=== PATIENT | female | born 1945 | race Asian ===

== ENCOUNTER 2018-03-11 10:07 | Emergency (ER) | payer MEDICARE, OTHER ==
[~2018-03-11] VITALS: Ht 154.9 cm; Wt 55.3 kg
[~2018-03-11 10:07] MED LIST: ASPIR 8181 MG PO; CRESTOR20 MG PO; CYCLOSPORINE100 MG PO; CYCLOSPORINE25 MG PO; FLUCONAZOLE200 MG PO; LEVOFLOXACIN750 MG PO; ONDANSETRON ODT8 MG PO; PROMACTA75 MG PO; TRAZODONE HCL50 MG PO; TYLENOL EXTRA500 MG PO; ULTRAM50 MG PO; VALACYCLOVIR500 MG PO
[2018-03-28] MEDS ORDERED: TRAZODONE HCL50 MG PO (13:42)
[2018-03-30] MEDS ORDERED: CLOTRIMAZOLE10 MG MM (10:40)
[2018-03-30] MEDS ORDERED: ONDANSETRON ODT8 MG PO (10:42)
[2018-04-04] MEDS ORDERED: CYCLOSPORINE25 MG PO (10:23)
== END 2018-03-11 13:22 | disposition home or self-care (01) ==
LOC: ED 10:07
DX: S20.212A Contusion of left front wall of thorax, initial encounter (principal); S40.022A Contusion of left upper arm, initial encounter; D61.9 Aplastic anemia, unspecified; W19.XXXA Unspecified fall, initial encounter; E78.5 Hyperlipidemia, unspecified; Z88.8 Allergy status to other drugs, medicaments and biological substances; Z79.899 Other long term (current) drug therapy; Z79.2 Long term (current) use of antibiotics
CPT/HCPCS: 80053; 85025; 99283

== ENCOUNTER 2018-04-12 11:31 | Emergency (ER) | payer MEDICARE, OTHER ==
[~2018-04-12] VITALS: Ht 154.9 cm; Wt 53.5 kg
[~2018-04-12 11:31] MED LIST changes: +CLOTRIMAZOLE10 MG MM
== END 2018-04-12 19:43 | disposition home or self-care (01) ==
LOC: ED 11:31
PROC: 30230N1 Transfusion of Nonautologous Red Blood Cells into Peripheral Vein, Open Approach (ICD-10-PCS; principal; 2018-04-12)
DX: D61.9 Aplastic anemia, unspecified (principal); E78.5 Hyperlipidemia, unspecified; Z88.8 Allergy status to other drugs, medicaments and biological substances; Z79.899 Other long term (current) drug therapy
CPT/HCPCS: 36430; 80053; 82728; 83540; 83615; 84238; 84466; 85025; 85027; 85610; 85730; 86850; 86900; 86901; 86920; 96374; 99283

== ENCOUNTER 2018-04-25 10:22 | Emergency (ER) | payer MEDICARE, OTHER ==
[~2018-04-25] VITALS: Ht 154.9 cm; Wt 53.1 kg
--- NOTE | 2018-04-26 14:54 | EKG ---
[facility] [address] [facility] [place] [address] Signed Normal sinus rhythm Normal ECG No previous ECGs available Confirmed by KATRIN VERA MD ([id number]) on 04/26/2018 2:54:15 PM Electronically Signed By: KATRIN VERA MD 04/26/18 1454 PATIENT NAME: KARTHIKFLORMARLYN MAILE Electrocardiogram DATE OF : 47 PHYSICIAN: KATRIN VERA MD REPORT #: [id number] REPORT IS CONFIDENTIAL AND NOT TO BE RELEASED WITHOUT AUTHORIZATION
== END 2018-04-25 13:36 | disposition home or self-care (01) ==
LOC: ED 10:22
DX: R55 Syncope and collapse (principal); D61.9 Aplastic anemia, unspecified; E78.5 Hyperlipidemia, unspecified; Z88.8 Allergy status to other drugs, medicaments and biological substances; Z79.899 Other long term (current) drug therapy; Z79.2 Long term (current) use of antibiotics
CPT/HCPCS: 36415; 80053; 85025; 86850; 86900; 86901; 86920; 93005; 93010; 96360; 99284; J7030

== ENCOUNTER 2018-05-29 18:05 | Emergency (ER) | payer MEDICARE, OTHER ==
[~2018-05-29] VITALS: Ht 154.9 cm; Wt 49.4 kg
--- OUTSIDE RECORDS SUMMARY | ~2018-05-29 | XMS | Encounter Summary ---
Demographics + + + | Address | [address] | | | [place] [address] | + + + | Home Phone | | + + + | Preferred Language | Unknown | + + + | Marital Status | | + + + | Buddhist Affiliation | Unknown | + + + | Race | White | + + + | Ethnic Group | Not or | + + + Author + + + | Author | [facility] | + + + | Organization | [facility] | + + + | Address | [...] Team Providers + +------+ + | Care Juvenile Counselor Name | Role | Phone | + +------+ + | Reginaldo Briggs MD | PCP | | + +------+ + Reason for Visit + + + | Reason | Comments | + + + | Follow-up visit | | + + + Encounter Details +--------+---------+ + + + | Date | Type | Department | Care Team | Description | +--------+---------+ + + + | 05/17/ | Office | Center for | Cari Fuentes MD | Aplastic anemia, | | 2018 | Visit | Hematologic | [address] | idiopathic, acquired | | | | Malignancies at | [address] [place], | ([facility]) (Primary Dx) | | | | [place] | [place] [address] | | | | | [address] | [phone] | | | | | [address] | | | | | | Mailcode: [id number] | | | | | | [place] | | | | | | [place], [place] | | | | | | [address] | | | | | | [phone] | | | +--------+---------+ + + + Social History + +-------+ [...] + + + as of this encounter Last Filed Vital Signs + + + + | Vital Sign | Reading | Time Taken | + + + + | Blood Pressure | 126/70 | 05/17/2018 1:51 PM PDT | + + + + | Pulse | 82 | 05/17/2018 1:51 PM PDT | + + + + | Temperature | 36.7 C (98.1 F) | 05/17/2018 1:51 PM PDT | + + + + | Respiratory Rate | 20 | 05/17/2018 1:51 PM PDT | + + + + | Oxygen Saturation | 97% | 05/17/2018 1:51 PM PDT | + + + + | Inhaled Oxygen | - | - | | Concentration | | | + + + + | Weight | 50.6 kg (111 lb 8.8 | 05/17/2018 1:51 PM PDT | | | oz) | | + + + + | Height | - | - | + + + + | Body Mass Index | 20.66 | 05/17/2018 1:51 PM PDT | + + + + in this encounter Instructions Patient Instructions - Anne-Marie Blackburn RN - 05/17/2018 2:45 PM PDTSummary of our visit on 05/17/2018 Aguilar points: --- Thank you for coming in today. --- Given that you have not had a very good disease response with the cyclosporine, Dr. Danielle mak is opting to change course of treatment. She discussed another oral medication for veronique tment of aplastic anemia, Danazol and subcutaneous NPlate. This is actually well tolerated compared to cyclosporin, so we are hoping that you will start to feel better once off cyclos porin. Do not take your cyclosporin dose tonight. --- Continue weekly labs and supportive care when needed, as you have been doing. --- Dr. Fuentes will discuss the plan with Dr. Gamboa starting the NPlate locally and to do any additional refills for Danazol since he is your primary oncologist and monitoring yo u more closely. --- Dr. Fuentes did not feel that you needed an MRI at this time and will relay this to Dr. Gamboa as well. --- With you platelet count=8,000 today, we will give you 1 unit of platelets in our clinic . To help with your dizziness, we will also give you 1L normal saline. --- Feel free to contact our office if you should have any questions/concerns about your ca re. New medications: Danazole 100mg three times daily... Prescription sent to local [facility] with [address] Gamboa should then continue with additional refills. Refills today: none Tests, procedures, or consults we have ordered today: Labs: none Radiology: none Special instructions or precautions: Practice good hand washing and frequent sanitation, avoid sick people, and avoid rubbing yo ur nose and mouth after contact with public surfaces Follow2-up plan: Labs: continue once weekly locally with Dr. Gamboa Visit with Dr. Fuentes or [employer]/PA: 2 months (July) PLEASE REMEMBER I HAVE A TEAM OF MECHANICAL OXIDIZER TO HELP ME TAKE CARE OF YOU. Therefore, mess ages left for me on my DIRECT PHONE line, on MY CHART, and via EMAIL may not be handled in a timely manner for your situation (I may be out of town on vacation or at a conference or do not have access to the medical record system). As a rule, please avoid using electronic uyen ns for communicating urgent or complex issues. IF YOU DON'T GET THE RESPONSE YOU NEED, PLEAS E CALL OUR CLINIC PHONE LINES LISTED BELOW. IF YOU DEVELOP ANY SYMPTOMS OR HAVE MEDICAL QUESTIONS: Please call the Triage Nurse at or [phone] (Monday - Monday 8:30-4:30). During after hours, holiday s, and weekends, please call [phone] and ask to have the BMT [employer] combination teacher paged. FOR PRESCRIPTIONS: Please allow >72 hours for prescription refills. Please make sure no ref ills remain prior to calling. If refills remain, please call the pharmacy for a refill. in t his encounter Progress Notes Erik Justin MA - 05/17/2018 2:45 PM PDTName of Test: CBC Result: PLT 8 Time Results Received: 1413 Name of Provider Notified: Cari Fuentes MD Date/Time of Provider Notification: 05/17/2018 2:20 PM Action(s) Taken: Readback, nurse notified. GEE Betts Uma M, MD - 05/17/2018 2:45 PM PDTFormatting of this note may be different from th e original. Chief Complaint: Aplastic Anemia Primary Care Provider: Reginaldo Briggs MD Local Oncologist: Dr.R Clay Referring provider: Leland Plunkett MD Treatment Hx: 1) Supportive transfusions 02/15/2018-current 2) CSA: 25mg 04/29/2018-05/17/2018 100mg 03/23/2018-04/29/2018-D/C starting 05/17/2018 3) Danazol: 100mg 3x/day: 05/17/2018 4) Promacta 75 mg PO BID: 02/15/2018-Current -Plan to d/c and change to Nplate pending insurance approval. HPI: Inocencia Bhatia is a 72 year old female with a 2 month hx of increased spontaneous bru ising but no bleeding. Also has increased fatigue over the last few weeks though still very active around her home and property. Patient reports a distant history of anemia while preg nant, no other hematologic issues of note, no family history of same. Denies unusual exposur es, drinks rarely. She reportedly had a normal CBC last fall 2016. She presented to her PCP with these complaints, CBC done demonstrating white count 3000 wit h reportedly normal differential, hemoglobin 9.3, platelets 6000.She then F/U Dr. Plunkett who performed 2 bone marrow biopsies several weeks apart to reach a diagnosis as she had a broa d differential including MDS/Leukemia/Aplastic anemia sec unknown exposure, initial biopsy o n 01/17/18 was inadequate for a complete assessment. Meanwhile she continued to have supportiv e transfusions (mainly platelets) and felt relatively well except for increasing anxiety abo ut her diagnosis. Her most recent biopsy was consistent with aplastic anemia (see labs/patho logy for more detail). Also had a W/U that included PNH clone testing , CMV titers, parvovir us, hepatitis panel, HIV-all labs were negative. Interim: Ms. Bhatia has been loosing weight, approximately 20 lbs since January, and reports that this weight loss has been accelerating. She reports a lack of appetite, and when eating feels full prematurely. This patient called Dr. Clay 04/12/2018 to report a loss of c onsciousness that lasted for ~5 minutes. Went to ED and received hydration. [facility] for this episode. Today: Ms. Bhatia presents to clinic with family. Is feeling weak and dehydrated. She has v julia little appetite, and when she forces herself to eat she will frequently vomit afterwards . She is concerned about gagging and describes a food aversion for fear of choking. She also is scared of falls and has become homebound due to fear of falls. Denies diarrhea/constipat ion. Does complain of some nausea. ROS-Stated above. Rest of ROS is negative. Physical Exam ECOG 1:The physical exam is generally normal. Patient appears well, alert and oriented x 3, pleasant, cooperative. Vitals are as noted by nurse. Neck supple and free of adenopathy, or masses. No thyromegaly. TYRA. Ears, throat are normal. Chest is clear to aus cultation. Heart sounds are normal, no murmurs, clicks, gallops or rubs. Abdomen is soft, no tenderness, masses or organomegaly. Extremities are normal. Peripheral pulses are normal. S creening neurological exam is normal without focal findings. Skin is darker,+ jaundice in sc mike. Labs Pathology 01/26/2018 [facility] Final Pathologic Diagnosis Peripheral blood, smear ([employer], MB-18-23, 01/26/2018): - Leukopenia with absolute neutropenia and absolute monocytopenia. - Normocytic normochromic anemia. - Thrombocytopenia. Bone marrow, aspirate and biopsy ([employer], MB-18-, 01/26/2018): - Hypocellular-appearing marrow for age with decreased trilineage hematopo iesis, relative erythroid hyperplasia, and megakaryocytic aplasia. - Few lymphoid aggregates, favor reactive. Comment: The bone marrow biopsy is inadequate for evaluation, precluding definitive assessm ent of cellularity. The clot section particles appear hypocellular for age, but due to thei r small size and fragmented nature, accurately determining cellularity is impossible. Within these limits, cellularity is estimated at 10%. The differential diagnosis for the changes includes aplastic anemia/PNH, myelodysplastic sy ndrome, and other bone marrow failure disorders. There are no overt dysplastic features or i ncrease in blasts in this specimen to suggest a myelodysplastic syndrome. Further, correspon ding next generation sequencing studies performed on peripheral blood fail to identify patho genic mutations characteristic of MDS. Correlation with all available clinical and laborato ry findings is suggested. Case seen by: Evi Pruitt M.D./Hematopathology Fellow Niels Edwards M.D./Hematopathologist 02/15/2018 [facility] Clinical History: Aplastic anemia. The following 1 variant has been identified. 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 The exact clinical significance of the v ariant is unknown, and should be interpreted with caution. The RAD21 protein is part of a pr otein group called the cohesin complex that holds the sister chromatids together during yessenia sis. It plays important roles in stabilizing cells' genetic information, repairing damaged DNA, and regulating the activity of certain genes that are essential for normal development. Mutations in a subset of the genes encoding subunits of the cohesin complex (RAD21, STAG2, SMC1A, SMC3) are relatively common in AML and MDS, often co-occurring with known moving van driver muta tions including NPM1 and FLT3-internal tandem duplication (ITD) [Blood. 2014, 123(6):914-92 0]. Despite their functions, mutations in subunits of cohesin complex do not cause aneuploid y. Case reviewed by: Johanny Garcia MD, PhD/Molecular Genetic Pathology Fellow David Land MD, PhD /Hematopathologist A/P: 1) Aplastic Anemia: diagnosed with aplastic anemia via [facility] on 01/26/2018. Thus far she has been treated with supportive transfusions, CSA (started 03/23/2018), and promacta (started 04/15) in conjunction with biweekly lab work in [place]. Ms. Bhatia's transfusion requirements are the same/somewhat worse and she has several sympt oms indicating intolerance to CSA.We discussed stopping the CSA and starting danazol. This will also help with appetite support. This androgen like drug works to stabilize telomeres a nd has shown efficiay in aplastic anemia pts. to improve anemia.Promacta appears not to be e ffective. I recommend stopping the promacta once we can start N-plate (pending insurance francheska roval). N-plate should be titrated up per label/platelet count to achieve maximum efficacy. Addendum: Pt has an Epo level that is low at 60-WOULD BENEFIT from adding YVONNE agents like P rocrit or Aranesp at lowest dose and titrating per Hgb response. Give transfusion and NS today. Consider repeating a BMBx after 2 months if no improvement i n counts . D/c CSA today. RTC 2 months. 2) Food Aversion: Pt reports this starting prior to initiation of CSA. This issue has been going on for ~2 months, worsening in last few weeks. Daughter thinks it is psychosomatic, h x of nausea following food precludes her from trying to each as much as perhaps she is able. Daughters describe this process as a reluctance to eat. However, this may be secondary to C SA. 3) Nausea/vomiting: Continue current antiemetics. 4) Memory Loss: Has a history of memory loss beginning in April. Described as a mental fog a ccompanied by forgetfulness. This is another potential s/e of CSA. Monitor, if related to CS A ,symptoms will improve as drug clears from pt system in next 3-5 days. 5) Inactivity: Pt is seeing a physical therapist next week. She has low confidence in her a bility to walk without falling. She reports spending most of her time in bed, in her bathroo m, or in her chair. PT recommended, activity also recommended. 6) Jaundice: Likely sec to Promacta/CSA. 7) Diarrhea: Very little time between initial urgency and uncontrollable bowel movement. Al so reports feeling bloated, though this is not readily apparent to daughters. Thank you for allowing us to care for this patient. in this encounter Plan of Treatment +--------+ [...] 2017 | Visit | Malignancy | [address] | | | | | | [place], | | | | | | [place] [address] | | | | | | [phone] | | | | | | | | +--------+ + + + + as of this encounter Results CMP, POC (BMP+LFT) (05/17/2018 2:13 PM) + +---------+ + | Component | Value | Ref Range | + +---------+ + | SODIUM, POC | 139 | 134 - 143 mmol/L | + +---------+ + | POTASSIUM, POC | 4.2 | 3.4 - 5.0 mmol/L | + +---------+ + | TOTAL CO2, POC | 26 | 22 - 29 mmol/L | + +---------+ + | CHLORIDE, POC | 107 | 97 - 108 mmol/L | + +---------+ + | GLUCOSE, POC | 136 (H) | 70 - 99 mg/dL | + +---------+ + | CALCIUM TOTAL, POC | 9.5 | 8.6 - 10.2 mg/dL | + +---------+ + | BUN, POC | 29 (H) | 6 - 20 mg/dL | + +---------+ + | CREATININE, POC | 1.5 (H) | 0.6 - 1.1 mg/dL | + +---------+ + | ALK PHOS, CMP POC | 45 | 41 - 109 U/L | + +---------+ + | ALT, CMP POC | <20 | 0 - 60 U/L | + +---------+ + | AST, CMP POC | 24 | 0 - 41 U/L | + +---------+ + | BILIRUBIN TOTAL, CMP | 2.0 (H) | 0.3 - 1.2 mg/dL | | POC | | | + +---------+ + | ALBUMIN, CMP POC | 3.3 (L) | 3.5 - 4.7 g/dL | + +---------+ + | PROTEIN TOTAL, CMP | 6.7 | 6.1 - 7.9 g/dL | | POC | | | + +---------+ + + + + | Specimen | Performing Laboratory | + + + | Blood | [facility], POINT OF CARE TESTS [address] | | | [place] [address] | + + + CBC+DIFF,POC (05/17/2018 2:12 PM) + + + + | Component | Value | Ref Range | + + + + | WBC POC | 1.4 (L) | 3.5 - 10.8 10*3/uL | + + + + | RBC POC | 3.32 (L) | 4.00 - 5.20 10*6/uL | + + + + | HGB POC | 10.2 (L) | 12.0 - 16.0 g/dL | + + + + | HCT POC | 29.0 (L) | 36.0 - 46.0 % | + + + + | MCV POC | 87.3 | 80.0 - 100 fL | + + + + | MCH POC | 30.7 | 27.0 - 34.0 pg | + + + + | MCHC POC | 35.2 | 32.0 - 36.0 g/dL | + + + + | RDW SD, POC | 44.5 | 35.1 - 46.3 fL | + + + + | PLT POC | 8 (AA) | 150 - 400 10*3/uL | + + + + | MPV POC | 11.8 | 9.7 - 12.3 fL | + + + + | NEUTROPHIL% POC | 5.7 (L) | 50.0 - 70.0 % | + + + + | LYMPH% POC | 91.4 (H) | 18 - 42 % | + + + + | MONO %, POC | 2.9 (L) | 3.5 - 9.0 % | + + + + | EOS %, POC | 0.0 (L) | 1.0 - 3.0 % | + + + + | BASO %, POC | 0.0 | 0.0 - 2.0 % | + + + + | NEUTROPHIL# POC | 0.1 (L) | 1.8 - 7.7 10*3/uL | + + + + | LYMPH# POC | 1.3 | 1.0 - 4.8 10*3/uL | + + + + | MONO #, POC | 0.0 (L) | 0.1 - 0.9 10*3/uL | + + + + | EOS #, POC | 0.0 | 0.0 - 0.5 10*3/uL | + + + + | BASO #, POC | 0.0 | 0.0 - 0.1 10*3/uL | + + + + | CBC COMMENT, POC | Reveiwed. | | + + + + + + + | Specimen | Performing Laboratory | + + + | Blood | [facility], POINT OF CARE TESTS [address] | | | [place] [address] | + + + ERYTHROPOIETIN, SERUM (05/17/2018 1:49 PM) + + + + | Component | Value | Ref Range | + + + + | ERYTHROPOIETIN, | 60 (H)Comment: INTERPRETIVE INFORMATION: | 4 - 27 mU/mL | | SERUM | ErythropoietinNormal serum concentrations | | | | of erythropoietin for 95% of individuals | | | | with normal hematocrits range from 4-27 | | | | mU/mL. As the hematocrit is lowered by iron | | | | deficiency, aplastic, or hemolytic anemia, | | | | the concentration of erythropoietin | | | | increases as shown in the graph below. In | | | | the absence of anemia, elevated | | | | concentrations are seen in renal tumors, as | | | | a manifestation of renal transplant | | | | rejection, and in secondary polycythemia. | | | | Low values may be observed in | | | | hemochromatosis. Expected | | | | Erythropoietin Concentrations in | | | | Patients | | | | with Uncomplicated Anemia | | | | Erythropoietin | | | | (mU/mL) 100,000 | | | | - | | | | + | | | | + 10,000 | | | | - | | | | +....... | | | | + | | | | ....... 1,00 | | | | 0 - | | | | + ....... | | | | + | | | | ........ | | | | 100 - + | | | | ........ | | | | + ........ | | | | 10 - | | | | + ........ | | | | +---+---+ | | | | ---+---+---+---+ | | | | 10 | | | | 20 30 40 50 60 70 | | | | | | | | (Hematocrit %) | | | | (Contributions To | | | | Nephrology 1987:66:54-62) Decreased | | | | erythropoietin concentrations with an | | | | elevated hematocrit are observed in | | | | patients with polycythemia rubra vera, and | | | | with a decreased hematocrit in patients | | | | with HIV infection who are receiving | | | | AZT. Patients on AZT who have anemia and | | | | erythropoietin concentrations of less than | | | | or equal to 500 mU/mL may benefit from | | | | therapy with recombinant EPO ([facility] | | | | [phone],1989).Performed by [facility] | | | | [facility] [place], [facility] [address] | | | | [email or web address], Sebastian Johnson, | | | | , Lab. Director | | + + + + + + + | Specimen | Performing Laboratory | + + + | Blood | [facility] [address] [facility] | | | [place] [address] | + + + LDH TOTAL, PLASMA (05/17/2018 1:49 PM) + +---------+ + | Component | Value | Ref Range | + +---------+ + | LD TOTAL, PLASMA | 191 | <=250 U/L | + +---------+ + | LD CMNT | No Hemo | | + +---------+ + + + + | Specimen | Performing Laboratory | + + + | Blood | [facility], [address] | | | [place] [address] | + + + in this encounter Visit Diagnoses + + | Diagnosis | + + | Aplastic anemia, idiopathic, acquired (HCC) - Primary | + + | Other specified aplastic anemias | + +"
--- OUTSIDE RECORDS SUMMARY | ~2018-05-29 | XMS | Encounter Summary ---
Demographics + + + | Address | [address] | | | [place] [address] | + + + | Home Phone | | + + + | Preferred Language | Unknown | + + + | Marital Status | | + + + | Mormonism Affiliation | Unknown | + + + | Race | White | + + + | Ethnic Group | Not or | + + + Author + + + | Author | [facility] | + + + | Organization | [facility] | + + + | [...] Team Providers + +------+ + | Care Sustainment Logistics Analyst Name | Role | Phone | + +------+ + | Reginaldo Briggs MD | PCP | | + +------+ + Reason for Visit + + + | Reason | Comments | + + + | Appointment Question | | + + + Encounter Details +--------+ + + + + | Date | Type | Department | Care Team | Description | +--------+ + + + + | 05/07/ | Telephone | Center for | Radha Sainz | Appointment Question | | 2017 | | Hematologic | Naomie RN [address] | | | | | Malignancies at | [address] | | | | | [place] | [place], [place] | | | | | [address] | [address] | | | | | [address] | [phone] | | | | | Mailcode: [id number] | | | | | | [place] | | | | | | [place], [place] | | | | | | [address] | | | | | | [phone] | | | +--------+ + + + [...] | | | | | [place], | | | | | | [place] [address] | | | | | | [phone] | | | | | | | | +--------+ + + + + as of this encounter Visit Diagnoses Not on filein this encounter"
--- OUTSIDE RECORDS SUMMARY | ~2018-05-29 | XMS | Clinical Summary ---
Demographics + + + | Address | [address] | | | [place] [address] | + + + | Home Phone | | + + + | Preferred Language | Unknown | + + + | Marital Status | | + + + | Yazidi Affiliation | Unknown | + + + [...] Team Providers + +------+ + | Care Pre Certification Specialist Name | Role | Phone | + +------+ + | Reginaldo Briggs MD | PP | | + +------+ + Source Comments [facility] is fully live on both EpicCare Ambulatory and EpicCare InPatient.[facility] Allergies + + + + + [...] | Hospital | | | | | 2018 | Encounter | | | | +--------+ [...] Appointment Question | | 2017 | | | RENNY Akbar | | +--------+ + + + + | 05/03/ | Telephone | | Cari Fuentes MD | Lack of appetite | | 2018 | | | | ("feeling full"); | [...] | | | | | [place], | | | | | | [place] [address] | | | | | | [phone] | | | | | | | [...] | + +--------+ + + + | ONCOLOGY PATHWAYS | Routin | 02/26/2018 | | Results for this | | TREATMENT DECISION | e | 12:00 AM | | procedure are in the | | | | PDT | | results section. | + +--------+ + + + from Last 3 Months Results CONFIRMATORY ABO/RH (05/17/2018 3:49 PM) + + + + | Component | Value | Ref Range | + + + + | ABO Group | B | | + + + + | Rh Type | Positive | | + + + + + + + | Specimen | Performing Laboratory | + + + | Blood | [facility], TRANSFUSION MEDICINE [address] [place] [address] | | | [place] [address] | + + + ANTIBODY SCREEN (05/17/2018 3:49 PM) + + + + | Component | Value | Ref Range | + + + + | Antibody Screen | Negative | | + + + + + + + | Specimen | Performing Laboratory | + + + | Blood | [facility], TRANSFUSION MEDICINE [address] [place] [address] | | | [place] [address] | + + + TYPE AND SCREEN (05/17/2018 3:49 PM) + + + | Specimen | Performing Laboratory | + + + | Blood | | + + + + + | Narrative | + + | The following orders were created for panel order TYPE AND SCREEN. | | Procedure | | Abnormality Status | | --------- | | ------ ABO & RH | | TYPE[[id number]] F | | inal result ANTIBODY | | SCREEN[[id number]] Fin | | al result Please view results for these tests on the | | individual orders. | + + ABO & RH TYPE (05/17/2018 3:49 PM) + + + + | Component | Value | Ref Range | + + + + | ABO Group | B | | + + + + | Rh Type | Positive | | + + + + + + + | Specimen | Performing Laboratory | + + + | Blood | [facility], TRANSFUSION MEDICINE [address] [place] [address] | | | [place] [address] | + + + PRODUCT - PLATELET PHERESIS LEUKOREDUCED (05/17/2018 3:41 PM) + + + + | Component | Value | Ref Range | + + + + | PRODUCT DESCRIPTION | PLATELETS PHERESIS, LEUKOCYTE REDUCED, | | | | IRRADIATED | | + + + + | PRODUCT UNIT # | [id number] | | + + + + | UNIT ABO | O | | + + + + | UNIT RH | POS | | + + + + | STATUS OF UNIT | Presumed Transfused | | + + + + | EXPIRATION DATE | [id number] | | + + + + | BLOOD TYPE BARCODE | 5100 | | + + + + | BLOOD PRODUCT CODE | [id number] | | + + + + + + + | Specimen | Performing Laboratory | + + + | | [facility] [address] [place] [address] | | | [address] [place] [address] | + + + CMP, POC (BMP+LFT) (05/17/2018 [...] | + + + | Blood | [facility], POINT OF CARE TESTS [address] | | | [place] [address] | + + + CBC+DIFF,POC (05/17/2018 2:12 [...] | + + + | Blood | [facility], POINT OF CARE TESTS [address] | | | [place] [address] | + + + ERYTHROPOIETIN, SERUM (05/17/2018 [...] (Contributions To | | | | Nephrology 1988:66:54-62) Decreased | | | | erythropoietin concentrations [...] | | | therapy with recombinant EPO ([facility]J | | | | 322:8884-5517,1989).Performed by [facility] | | | | Laboratories,[address], [facility] [place] [address] | | | | [phone].[employer], Sebastian Johnson, | | | | , Lab. Director | | + + + + + + + | Specimen | Performing Laboratory | + + + | Blood | [facility] [address] [facility] | | | [place] [address] | + + + LDH TOTAL, PLASMA (05/17/2018 1:49 PM) + +---------+ + | Component | Value | Ref Range | + +---------+ + | LD TOTAL, PLASMA | 191 | <=250 U/L | + +---------+ + | LD CMNT | No Hemo | | + +---------+ + + + + | Specimen | Performing Laboratory | + + + | Blood | [facility], CORE [address] [place] [address] | | | [place] [address] | + + + ONCOLOGY PATHWAYS TREATMENT DECISION (02/26/2018) + + + + | Component | Value | Ref Range | + + + + | ONCOLOGY PATHWAYS | [Other Dx] - No Medical Intervention - Off | | | TREATMENT PLAN | Treatment. | | | REGIMEN | | | + + + + | ONCOLOGY PATHWAYS | [Other Dx] - No Medical Intervention - Off | | | TREATMENT DECISION | Treatment. | | | DETAILS | | | + + + + + + + | Specimen | Performing Laboratory | + + + | | VIA ONCOLOGY PATHWAYS | + + + from Last 3 [...] | MEDICA | xxxxxxxxxx | Medica | [phone]- | [address] | | | RE A & | | re | [phone] | [place] [address] | | | B | | | | | + +--------+ +--------+ + + | MODA MEDICARE | MODA | xxxxxxxxx | POS | [phone]- | [address] [address] | | SUPPLEMENT | MEDICA | | | [phone] | [place] [address] | | | RE | | | [...] | Self | [birth year] | Home: | [address] | | | al/Sudeep | | 1945 | [phone] | [place] [address] | | | srinivas | | | [phone] | | + +--------+ +--------+ + +
--- OUTSIDE RECORDS SUMMARY | ~2018-05-29 | XMS | Encounter Summary ---
Demographics + + + | Address | [address] | | | [place] [address] | + + + | Home Phone | | + + + | Preferred Language | Unknown | + + + | Marital Status | | + + + | Mosque Affiliation | Unknown | + + + | Race | White | + + + | Ethnic Group | Not or | + + + Author + + + | Author | [facility] | + + + | Organization | [facility] | + + + | Address [...] Team Providers + +------+ + | Care Deicer Inspector Electric Name | Role | Phone | + [...] [address] | | | | | | [facility] | | | | | | Mailcode: [id number] | | | | | | [place] | | | | | | [place], [place] | | | | | | [address] | | | | | | [phone] | | | +--------+ + + + [...] | | | | | Michelle Silva [place], | | | | | | [place] [address] | | | | | | [phone] | | | | | | | [...] + + + | Blood | [facility] POINT OF CARE TESTS [address] [facility] | | | [place] [address] | + + + CBC+DIFF,POC (05/17/2018 2:12 [...] + + + | Blood | [facility] POINT OF CARE TESTS [address] | | | [place] [address] | + + + ERYTHROPOIETIN, SERUM (05/17/2018 [...] | | | therapy with recombinant EPO ([facility] | | | | 322:8939-1790,1989).Performed by [facility] | | | | [facility],[address] [place] [address] | | | | [phone].[employer], Sebastian Johnson, | | | | MD Lab. Director | | + + + + + + + | Specimen | Performing Laboratory | + + + | Blood | [facility] [address] [facility] | | | [place] [address] | + + + LDH TOTAL, PLASMA (05/17/2018 1:49 PM) + +---------+ + | Component | Value | Ref Range | + +---------+ + | LD TOTAL, PLASMA | 191 | <=250 U/L | + +---------+ + | LD CMNT | No Hemo | | + +---------+ + + + + | Specimen | Performing Laboratory | + + + | Blood | [facility], CORE [address] | | | [place] [address] | + + + in this encounter Visit Diagnoses + + | Diagnosis | + + | Aplastic anemia, idiopathic, acquired (HCC) | + + | Other specified aplastic anemias | + +"
--- OUTSIDE RECORDS SUMMARY | ~2018-05-29 | XMS | Encounter Summary ---
Demographics + + + | Address | [address] | | | [place] [address] | + + + | Home Phone | | + + + | Preferred Language | Unknown | + + + | Marital Status | | + + + | Judaism Affiliation | Unknown | + + + | Race | Unknown | + + + | Ethnic Group | Unknown | + + + Author + + + | Author | [facility] | | | and [place] | + + + | Organization | [facility] | | | and [...] Team Providers + +------+ + | Care Freight Representative Name | Role | Phone | + [...] [place] | | | | | [address] [place] | [place] [address] | | | | | [place] [address] | [phone] | | | | | [phone] | | | +--------+ + + + [...]
--- OUTSIDE RECORDS SUMMARY | ~2018-05-29 | XMS | Encounter Summary ---
Demographics + + + | Address | [address] | | | [place] [address] | + + + | Home Phone | | + + + | Preferred Language | Unknown | + + + | Marital Status | | + + + | Mu-Ism Affiliation | Unknown | + + + | Race | White | + + + | Ethnic Group | Not or | + + + Author + + + | Author | [facility] | + + + | Organization | [facility] | + + + | Address [...] Team Providers + +------+ + | Care Foreign Policy Officer Name | Role | Phone | + [...] 2017 | | Hematologic | Naomie RN [address] | | | | | Malignancies at | [address] | | | | | [place] | [place], [place] | | | | | [address] | [address] | | | | | [address] | [phone] | | | | | Mailcode: UHN73A | | | | | | [place] Gu[place] | | | | | | [place], [place] | | | | | | [address] | | | | | | [phone] | | | +--------+ + + + [...] | | | | | Michelle Silva [place], | | | | | | [place] [address] | | | | | | [phone] | | | | | | | | +--------+ + + + + as of this encounter Visit Diagnoses Not on filein this encounter"
--- OUTSIDE RECORDS SUMMARY | ~2018-05-29 | XMS | Encounter Summary ---
Demographics + + + | Address | [address] | | | [place] [address] | + + + | Home Phone | | + + + | Preferred Language | Unknown | + + + | Marital Status | | + + + | Adventism Affiliation | Unknown | + + + | Race | White | + + + | Ethnic Group | Not or | + + + Author + + + | Author | [facility] | + + + | Organization | [facility] | + + + | Address [...] Team Providers + +------+ + | Care Rivet Machine Operator Name | Role | Phone [...] 05/03/ | Telephone | Center for | Cari Fuentes MD | Lack of appetite | | 2018 | | Hematologic | [address] | ("feeling full"); | | | | Malignancies at | [facility], | Weight loss (down 20 | | | | [place] | [place] [address] | lbs since january); | | | | [address] | [phone] | Lab findings, | | | | [facility] | | teaching, guidance, | | | | Mailcode: UHN73A | | and counseling | | | | [place] | | (asking for Iron | | | | [place], [place] | | overload testing and | | | | [address] | | MRI of the liver?); | | | | [phone] | | Referral | | | | [...] | | | | | Michelle Silva [place], | | | | | | [place] [address] | | | | | | [phone] | | | | | | | | +--------+ + + + + as of this encounter Visit Diagnoses Not on filein this encounter
--- OUTSIDE RECORDS SUMMARY | ~2018-05-29 | XMS | Clinical Summary ---
Demographics + + + | Address | [address] | | | [place] [address] | + + + | Home Phone | | + + + | Preferred Language | Unknown | + + + | Marital Status | | + + + | Mu-Ism Affiliation | Unknown | + + + | Race | Unknown | + + + | Ethnic Group | Unknown | + + + Author + + + | Author | [facility] | | | and [place] | + + + | Organization | [facility] | | | and [place] [...] Team Providers + +------+ + | Care Tool Planer Set Up Operator Name | Role | Phone | [...] + + + Current Medications + + + +---------+------+------+-------+ | Prescription | Sig. | Disp. | Refills | Star | End | Statu | | | | | | t | Date | s | | | | | | Date | | | + + + +---------+------+------+-------+ | | Take 1 tablet by | | | | | Activ | | loratadine-pseudoePH | mouth as needed for | | | | | e | | EDrine (CLARITIN-D | Allergies. | | | | | | | 24 HOUR) 10-240 mg | | | | | | | | per tablet | | | | | | | + + + +---------+------+------+-------+ | rosuvastatin | Take 20 mg by mouth | | | | | Activ | | (CRESTOR) 20 mg | nightly. | | | | | e | | tablet | | | | | | | + + + +---------+------+------+-------+ | fluticasone | 1 spray by Nasal | | | | | Activ | | (FLONASE) 50 | route as needed for | | | | | e | | mcg/nasal spray | Allergies. | | | | | | + + + +---------+------+------+-------+ | aluminum & | Take 30 mLs [...] | | | | | + + + +---------+------+------+-------+ | cyanocobalamin | Take 1,000 mcg by | | | | | Activ | | (VITAMIN B-12) 1000 | mouth Daily. | | | | | e | | MCG tablet | | | | | | | + + + +---------+------+------+-------+ | raNITIdine | Take 150 mg by mouth | | | | | Activ | | (ZANTAC) 150 mg | as needed for | | | | | e | | tablet | Heartburn. | | | | | | + + + +---------+------+------+-------+ | ALPRAZolam (XANAX) | Take 1 tablet by | | | 04/0 | | Activ | | 0.25 mg tablet | mouth as needed. | | | 3/20 | | e | | | | | | 18 | | | + + + +---------+------+------+-------+ | polyethylene | Take 17 g by mouth | | | | | Activ | | glycol (MIRALAX) | Daily. | | | | | e | | powder | | | | | | | + + + +---------+------+------+-------+ | TRAZODONE HCL PO | Take by mouth | | | | | Activ | | | nightly as needed. | | | | | e | + + + +---------+------+------+-------+ | Acetaminophen | Take by mouth. | | | | | Activ | | (TYLENOL PO) | | | | | | e | + + + +---------+------+------+-------+ | DIPHENHYDRAMINE | Take by mouth as | | | | | Activ | | HCL PO | needed. | | | | | e | + + + +---------+------+------+-------+ | ondansetron | Take 1 tablet by | 20 | 3 | 05/2 | | Activ | | (ZOFRAN) 8 MG tablet | mouth every 8 hours | tablet | | 20 | | e | | | as [...] | | | | | + + + +---------+------+------+-------+ | megestrol (MEGACE | Take 5 mLs by mouth | 150 mL | 5 | 04/16 | 05/16 | Activ | | ES) 625 MG/5ML | Daily for 30 days. | | | 0/20 | 07/05 | e | | suspension | | | | 18 | 18 | | + + + +---------+------+------+-------+ Active Problems + + + | Problem | Noted Date | + + + | Aplastic anemia (HCC) | 01/31/2018 | + + + | Pancytopenia (HCC) | 01/17/2018 | + + + Encounters +--------+ + + + + | Date | Type | Specialty | Care Team | Description | +--------+ + + + + | 05/04/ | Orders Only | | Jerardo Clay ([facility]) | | 2017 | | | Jer Miller MD | (Primary Dx) | +--------+ + + + + | 04/12/ | Telephone | | Jerardo Clay | | 2017 | | | Jer Miller MD | | +--------+ + + + + | 03/05/ | Telephone | | Jerardo Clay | | 2017 | | | Jer [...] + | Blood Pressure | 106/61 | 01/31/2018 1313 PDT | + + + + | Pulse | 61 | 01/31/20181312 PDT | + + + + | Temperature | 36.4 C (97.5 F) | 01/31/20181312 PDT | + + + + | Respiratory Rate | 16 | 01/31/20181312 PDT | + + + + | Oxygen Saturation | 96% | 01/31/20181110 PDT | + + + + | [...] 3 Months Results LABS - EXTERNAL SCAN (04/27/2018)Only the most recent of 2 results within the time period i s [...] + + | MEDICARE | MEDICA | [id number] | Medica | +1- | | | | RE | | re | [phone] | | | | PART A | | | | | | | AND B | | | | | + +--------+ +--------+ + + | MODA | MODA | [id number] | Indemn | [phone] | [address] [address] | | | HEALTH | | ity | [address] | [place] [address] | | | MDCR | | | [...] | Self | [birth year] | Home: | [address] | | | al/Fam | | 1945 | [phone] | [place] [address] | | | srinivas | | | [phone] | | + +--------+ +--------+ + +
--- OUTSIDE RECORDS SUMMARY | ~2018-05-29 | XMS | Encounter Summary ---
Demographics + + + | Address | [address] | | | [place] [address] | + + + | Home Phone | | + + + | Preferred Language | Unknown | + + + | Marital Status | | + + + | Orthodoxy Affiliation | Unknown | + + + | Race | Unknown | + + + | Ethnic Group | Unknown | + + + Author + + + | Author | [facility] | | | and [place] | + + + | Organization | [facility] | | | and [place] [...] Team Providers + +------+ + | Care Workers' Compensation Hearings Officer Name | Role | Phone | [...] [place] | | | | | [address] [place] | [place] [address] | | | | | [place] [address] | [phone] | | | | | [phone] | | | +--------+ + + + [...]
--- OUTSIDE RECORDS SUMMARY | ~2018-05-29 | XMS | Encounter Summary ---
Demographics + + + | Address | [address] | | | [place] [address] | + + + | Home Phone | | + + + | Preferred Language | Unknown | + + + | Marital Status | | + + + | Episcopal Affiliation | Unknown | + + + | Race | White | + + + | Ethnic Group | Not or | + + + Author + + + | Author | [facility] | + + + | Organization | [facility] | + + + | Address | Unknown | + + + | Phone | Unavailable | + + + Support + + +---------+ + | Name | Relationship | Address | Phone | + + +---------+ + | Prince Bhatia | YAIR | Unknown | | + + +---------+ + | Prinec Bhatia III | ECON | Unknown | | + + +---------+ + | Martha Bhatia | ECON | Unknown | | + + +---------+ + | June Rossi | ECON | Unknown | | + + +---------+ + | Lexi Curry | ECON | Unknown | | + + +---------+ + Care Team Providers + +------+ + | Care Sales Representative Raw Fibers Name | Role | Phone | + [...] | | | | Malignancies at | [facility], | Weight loss (down 20 | | | | [place] | [place] [address] | lbs since january); | | | | [address] | [phone] | Lab findings, | | | | [facility] | | teaching, guidance, | | | | Mailcode: [id number] | | and counseling | | | | [place] | | (asking for Iron | | | | [place], [place] | | overload testing and | | | | [address] | | MRI of the liver?); | | | | [phone] | | Referral | | | | [...] | | | | | Michelle Silva [place], | | | | | | [place] [address] | | | | | | [phone] | | | | | | | | +--------+ + + + + as of this encounter Visit Diagnoses Not on filein this encounter
--- OUTSIDE RECORDS SUMMARY | ~2018-05-29 | XMS | Clinical Summary ---
Demographics + + + | Address | [address] | | | [place] [address] | + + + | Home Phone | | + + + | Preferred Language | Unknown | + + + | Marital Status | | + + + | Zoroastrian Affiliation | Unknown | + + + | Race | Unknown | + + + | Ethnic Group | Unknown | + + + Author + + + | Author | [facility] | | | and [place] | + + + | Organization | [facility] | | | and [place] [...] Team Providers + +------+ + | Care Caseworker Protective Services Name | Role | Phone | + [...] | Orders Only | | Jerardo Clay ([facility]) | | 2017 | | [...] + + | MEDICARE | MEDICA | [id number] | Medica | +1- | | | | RE | | re | [phone] | | | | PART A | | | | | | | AND B | | | | | + +--------+ +--------+ + + | MODA | MODA | [id number] | Indemn | [phone] | [address] [address] | | | HEALTH | | ity | [address] | [place] [address] | | | MDCR | | | [...] | Self | [birth year] | Home: | [address] | | | al/Fam | | 1945 | [phone] | [place] [address] | | | srinivas | | | [phone] | | + +--------+ +--------+ + +
--- OUTSIDE RECORDS SUMMARY | ~2018-05-29 | XMS | Encounter Summary ---
Demographics + + + | Address | [address] | | | [place] [address] | + + + | Home Phone | | + + + | Preferred Language | Unknown | + + + | Marital Status | | + + + | Rastafarian Affiliation | Unknown | + + + [...] Team Providers + +------+ + | Care Psych Assistant Name | Role | Phone | + [...] [address] | | | | | | [facility] | | | | | | Mailcode: UHN73A | | | | | | Forrest Guerra | | | | | | [place], [place] | | | | | | [address] | | | | | | [phone] | | | +--------+ + + + [...] | | | | | Michelle Silva [place], | | | | | | [place] [address] | | | | | | [phone] | | | | | | | [...] POINT OF CARE TESTS [address] [facility] | | | [place] [address] | + + + CBC+DIFF,POC (05/17/2018 2:12 [address] | | | [place] [address] | + + + ERYTHROPOIETIN, SERUM (05/17/2018 [...] | | | therapy with recombinant EPO ([facility] | | | | 322:2313-4763,1989).Performed by [facility] | | | | [facility],[address] [place] [address] | | | | [phone].[employer], Sebastian Johnson, | | | | MD Lab. Director | | + + + + + + + | Specimen | Performing Laboratory | + + + | Blood | [facility] [address] [facility] | | | [place] [address] | + + + LDH TOTAL, PLASMA (05/17/2018 1:49 PM) + +---------+ + | Component | Value | Ref Range | + +---------+ + | LD TOTAL, PLASMA | 191 | <=250 U/L | + +---------+ + | LD CMNT | No Hemo | | + +---------+ + + + + | Specimen | Performing Laboratory | + + + | Blood | [facility], CORE [address] | | | [place] [address] | + + + in this encounter Visit Diagnoses + + | Diagnosis | + + | Aplastic anemia, idiopathic, acquired (HCC) | + + | Other specified aplastic anemias | + +"
--- OUTSIDE RECORDS SUMMARY | ~2018-05-29 | XMS | Encounter Summary ---
Demographics + + + | Address | [address] | | | [place] [address] | + + + | Home Phone | | + + + | Preferred Language | Unknown | + + + | Marital Status | | + + + | Judaism Affiliation | Unknown | + + + | Race | Unknown | + + + | Ethnic Group | Unknown | + + + Author + + + | Author | [facility] | | | and [place] | + + + | Organization | [facility] [...] Team Providers + +------+ + | Care Site Identification Specialist Name | Role | Phone | [...] [place] | | | | | [address] [place] | [place] [address] | | | | | [place] [address] | [phone] | | | | | [phone] | | | +--------+ + + + [...]
--- OUTSIDE RECORDS SUMMARY | ~2018-05-29 | XMS | Encounter Summary ---
Demographics + + + | Address | [address] | | | [place] [address] | + + + | Home Phone | | + + + | Preferred Language | Unknown | + + + | Marital Status | | + + + | Scientology Affiliation | Unknown | + + + | Race | Unknown | + + + | Ethnic Group | Unknown | + + + Author + + + | Author | [facility] | | | and [place] | + + + | Organization | [facility] | | | and [...] Team Providers + +------+ + | Care Lawn Mower Name | Role | Phone | + [...] + + | 03/05/ | Telephone | [facility] | [facility], | Other | | 2018 | | [facility] | Jer Miller MD [address] | | | | [facility] [address] [place] | | | | | [address] [place] | [place] [address] | | | | | [place] [address] | [phone] | | | | | [phone] | | | +--------+ + + + [...]
--- OUTSIDE RECORDS SUMMARY | ~2018-05-29 | XMS | Clinical Summary ---
Demographics + + + | Address | [address] | | | [place] [address] | + + + | Home Phone [...] Team Providers + +------+ + | Care Blocking Machine Operator Second Name | Role | Phone | + +------+ + | Reginaldo Briggs MD | PP | | + +------+ + Source Comments [facility] is fully live on both EpicCare Ambulatory and EpicCare InPatient.[facility] Allergies [...] | | | | | N[place], | | | | | | [place] [address] | | | | | | [phone] | | | | | | | [...] | + + + | Blood | [facility], TRANSFUSION MEDICINE [address] [place] [address] | | | [place] [address] | + + + ANTIBODY SCREEN (05/17/2018 3:49 PM) + + + + | Component | Value | Ref Range | + + + + | Antibody Screen | Negative | | + + + + + + + | Specimen | Performing Laboratory | + + + | Blood | [facility], TRANSFUSION MEDICINE [address] [place] [address] | | | [place] [address] | + + + TYPE AND SCREEN [...] | ------ ABO & RH | | TYPE[[id number]] F | | inal result ANTIBODY | | SCREEN[[id number]] Fin | | al result Please view [...] | + + + | Blood | [facility], TRANSFUSION MEDICINE [address] [place] [address] | | | [place] [address] | + + + PRODUCT - PLATELET PHERESIS LEUKOREDUCED (05/17/2018 3:41 PM) + + + + | Component | Value | Ref Range | + + + + | PRODUCT DESCRIPTION | PLATELETS PHERESIS, LEUKOCYTE REDUCED, | | | | IRRADIATED | | + + + + | PRODUCT UNIT # | [id number] | | + + + + | UNIT ABO | O | | + + + + | UNIT RH | POS | | + + + + | STATUS OF UNIT | Presumed Transfused | | + + + + | EXPIRATION DATE | [id number] | | + + + + | BLOOD TYPE BARCODE | 5100 | | + + + + | BLOOD PRODUCT CODE | [id number] | | + + + + + + + | Specimen | Performing Laboratory | + + + | | [facility], [facility] [address] [place] [address] | | | [address] [place] [address] | + + + CMP, POC (BMP+LFT) [...] [address] | | | [place] [address] | + + + CBC+DIFF,POC (05/17/2018 2:12 [...] | + + + | Blood | [facility], POINT OF CARE TESTS [address] | | | [place] [address] | + + + ERYTHROPOIETIN, SERUM (05/17/2018 [...] recombinant EPO (NEJ | | | | [id number],1989).Performed by [facility] | | | | Laboratories,[address], [facility] [place] [address] | | | | [phone].Weave, Sebastian Johnson, | | | | , Lab. Director | | + + + + + + + | Specimen | Performing Laboratory | + + + | Blood | [facility] [address] [facility] | | | [place] [address] | + + + LDH TOTAL, PLASMA (05/17/2018 1:49 PM) + +---------+ + | Component | Value | Ref Range | + +---------+ + | LD TOTAL, PLASMA | 191 | <=250 U/L | + +---------+ + | LD CMNT | No Hemo | | + +---------+ + + + + | Specimen | Performing Laboratory | + + + | Blood | [facility], CORE [address] | | | [place] [address] | + + + ONCOLOGY PATHWAYS TREATMENT [...] | | re | [address] | [place] [address] | | | B | | | | | + +--------+ +--------+ + + | MODA MEDICARE | MODA | xxxxxxxxx | POS | [phone] | [address] [address] | | SUPPLEMENT | MEDICA | | | [phone] | [place] [address] | | | RE | | | [...] | Self | [birth year] | Home: | [address] | | | al/Sudeep | | [phone] | [phone] | [place] [address] | | | srinivas | | | [phone] | | + +--------+ +--------+ + +
--- OUTSIDE RECORDS SUMMARY | ~2018-05-29 | XMS | Encounter Summary ---
Demographics + + + | Address | [address] | | | [place] [address] | + + + | Home Phone | | + + + | Preferred Language | Unknown | + + + | Marital Status | | + + + | Buddhist Affiliation | Unknown | + + + | Race | White | + + + | Ethnic Group | Not or | + + + Author + + + | Author | [facility] | + + + | Organization | [facility] | + + + | [...] Team Providers + +------+ + | Care Museum Exhibit Designer Name | Role | Phone | + [...] + + | 05/17/ | Hospital | [facility] | | | | 2018 | Encounter | Hematologic | | | | | | Malignancies at [facility] | | | | | | [address] | | | | | | [facility] | | | | | | Mailcode: UHN73A | | | | | | [place] Guerra | | | | | | [place], [place] | | | | | | [address] | | | | | | [phone] | | | +--------+ + + + [...] and reminded to check out at front office clerk upon discharge. Ed ucated pt to contact clinic if experiencing temp greater than 100.4, chills, s/s of infectio n or bleeding, inability to swallow or keep down liquids or pills. Pt verbalized understand ing. Patient ambulated independently out of clinic with daughter, who is also automobile drivers. in this encounter Plan of Treatment +--------+ [...] | | | | N[place]u Silva [place], | | | | | | [place] [address] | | | | | | [phone] | | | | | | | | +--------+ + + + + as of this encounter Results CONFIRMATORY ABO/RH (05/17/2018 3:49 PM) + + + + | Component | Value | Ref Range | + + + + | ABO Group | B | | + + + + | Rh Type | Positive | | + + + + + + + | Specimen | Performing Laboratory | + + + | Blood | [facility], TRANSFUSION MEDICINE [address] | | | [address] [place] [address] | + + + ANTIBODY SCREEN (05/17/2018 3:49 PM) + + + + | Component | Value | Ref Range | + + + + | Antibody Screen | Negative | | + + + + + + + | Specimen | Performing Laboratory | + + + | Blood | [facility], TRANSFUSION MEDICINE [address] | | | [place] [address] | + + + ABO & RH TYPE (05/17/2018 3:49 PM) + + + + | Component | Value | Ref Range | + + + + | ABO Group | B | | + + + + | Rh Type | Positive | | + + + + + + + | Specimen | Performing Laboratory | + + + | Blood | [facility], TRANSFUSION MEDICINE [address] [place] [address] | | | [place] [address] | + + + TYPE AND SCREEN [...] | ------ ABO & RH | | TYPE[[id number]] F | | inal result ANTIBODY | | SCREEN[[id number]] Fin | | al result Please view results for these tests on the | | individual orders. | + + PRODUCT - PLATELET PHERESIS LEUKOREDUCED (05/17/2018 3:41 PM) + + + + | Component | Value | Ref Range | + + + + | PRODUCT DESCRIPTION | PLATELETS PHERESIS, LEUKOCYTE REDUCED, | | | | IRRADIATED | | + + + + | PRODUCT UNIT # | [id number] | | + + + + | UNIT ABO | O | | + + + + | UNIT RH | POS | | + + + + | STATUS OF UNIT | Presumed Transfused | | + + + + | EXPIRATION DATE | [id number] | | + + + + | BLOOD TYPE BARCODE | 5100 | | + + + + | BLOOD PRODUCT CODE | [id number] | | + + + + + + + | Specimen | Performing Laboratory | + + + | | [facility], TRANSFUSION MEDICINE [address] [facility] | | | [place] [address] | + + + in this encounter Visit Diagnoses + + | Diagnosis | + + | Aplastic anemia (HCC) - Primary | + + | Aplastic anemia, unspecified | + +"
--- OUTSIDE RECORDS SUMMARY | ~2018-05-29 | XMS | Encounter Summary ---
Demographics + + + | Address | [address] | | | [place] [address] | + + + | Home Phone | | + + + | Preferred Language | Unknown | + + + | Marital Status | | + + + | Sabianism Affiliation | Unknown | + + + | Race | Unknown | + + + | Ethnic Group | Unknown | + + + Author + + + | Author | [facility] | | | and [place] | + + + | Organization | [facility] | | | and [place] [...] Team Providers + +------+ + | Care Equine Pharmacology Technician Name | Role | Phone | [...] [place] | | | | | [address] [place] | [place] [address] | | | | | [place] [address] | [phone] | | | | | [phone] | | | +--------+ + + + [...]
--- OUTSIDE RECORDS SUMMARY | ~2018-05-29 | XMS | Encounter Summary ---
Demographics + + + | Address | [address] | | | [place] [address] | + + + | Home Phone | | + + + | Preferred Language | Unknown | + + + | Marital Status | | + + + | Restorationist Affiliation | Unknown | + + + | Race | White | + + + | Ethnic Group | Not or | + + + Author + + + | Author | [facility] | + + + | Organization | [facility] | + + + | [...] Team Providers + +------+ + | Care Toe Puller Name | Role | Phone | + [...] | | Malignancies at | [address] [place], | ([facility]) (Primary Dx) | | | | [place] Gu[place] | [place] [address] | | | | | [address] | [phone] | | | | | [address] | | | | | | Mailcode: UHN73A | | | | | | [place] | | | | | | [place], [place] | | | | | | [address] | | | | | | [phone] | | | +--------+---------+ + + + [...] three times daily... Prescription sent to local [facility] with [address] Gamboa should [...] Dr. Gamboa Visit with Dr. Fuentes or BILINGUAL BRANCH MANAGER/PA: 2 months (July) PLEASE REMEMBER I HAVE A TEAM OF RADIO ANNOUNCER TO HELP ME TAKE CARE OF YOU. [...] call the Triage Nurse at or x [phone] (Monday - Monday 8:30-4:30). During after hours, holiday s, and weekends, please call [phone] and ask to have the BMT Person radio time salesperson paged. FOR PRESCRIPTIONS: Please allow >72 hours [...] ED and received hydration. Admitted to hosp [facility] for two nights for this episode. [...] BMBx Final Pathologic Diagnosis Peripheral blood, smear ([facility], MB-18-23, 01/26/2018): - Leukopenia with absolute neutropenia and absolute monocytopenia. - Normocytic normochromic anemia. - Thrombocytopenia. Bone marrow, aspirate and biopsy ([facility], MB-18-, 01/26/2018): - Hypocellular-appearing marrow for age [...] 3% (Low allele frequency) Variant ID: [id number] ([id number]):c.374+1->A; chr8:[id number]>CT ADDITIONAL DETAILS ON VARIANTS IDENTIFIED IN THIS [...] AML and MDS, often co-occurring with known shuttle van driver muta tions including NPM1 and [...] in conjunction with biweekly lab work in [place]. Ms. Bhatia's transfusion requirements are the same/somewhat [...] | | | | | Michelle [place], | | | | | | [place] [address] | | | | | | [phone] | | | | | | | [...] | + + + | Blood | [facility], POINT OF CARE TESTS [address] | | | [place] [address] | + + + CBC+DIFF,POC (05/17/2018 2:12 [...] | + + + | Blood | [facility], POINT OF CARE TESTS [address] | | | [place] [address] | + + + ERYTHROPOIETIN, SERUM (05/17/2018 [...] | | | therapy with recombinant EPO ([facility] | | | | [phone],1989).Performed by [facility] | | | | [facility] [address], [facility] [place] [address] | | | | [phone], Sebastian Johnson, | | | | , Lab. Director | | + + + + + + + | Specimen | Performing Laboratory | + + + | Blood | [facility] [address] [facility] | | | [place] [address] | + + + LDH TOTAL, PLASMA (05/17/2018 1:49 PM) + +---------+ + | Component | Value | Ref Range | + +---------+ + | LD TOTAL, PLASMA | 191 | <=250 U/L | + +---------+ + | LD CMNT | No Hemo | | + +---------+ + + + + | Specimen | Performing Laboratory | + + + | Blood | [facility], CORE [address] | | | [place] [address] | + + + in this encounter Visit Diagnoses + + | Diagnosis | + + | Aplastic anemia, idiopathic, acquired (HCC) - Primary | + + | Other specified aplastic anemias | + +"
--- OUTSIDE RECORDS SUMMARY | ~2018-05-29 | XMS | Encounter Summary ---
Demographics + + + | Address | [address] | | | [place] [address] | + + + | Home Phone [...] + | Author | [facility] | | | and [place] | + + + | Organization | [facility] | | | and [...] Team Providers + +------+ + | Care Truck Supervisor Name | Role | Phone | [...] [place] | | | | | [address] [place] | [place] [address] | | | | | [place] [address] | [phone] | | | | | [phone] | | | +--------+ + + + [...]
--- OUTSIDE RECORDS SUMMARY | ~2018-05-29 | XMS | Encounter Summary ---
Demographics + + + | Address | [address] | | | [place] [address] | + + + | Home Phone | | + + + | Preferred Language | Unknown | + + + | Marital Status | | + + + | Mormonism Affiliation | Unknown | + + + | Race | White | + + + | Ethnic Group | Not or | + + + Author + + + | Author | [facility] | + + + | Organization | [facility] | + + + | Address | [...] Team Providers + +------+ + | Care Roll Tube Setter Name | Role | Phone | + [...] + + | 05/17/ | Hospital | [place] [facility] | | | | 2018 | Encounter | Hematologic | | | | | | Malignancies at [facility] | | | | | | [address] | | | | | | [facility] | | | | | | Mailcode: UHN73A | | | | | | [place] Guerra | | | | | | [place], [place] | | | | | | [address] | | | | | | [phone] | | | +--------+ + + + [...] pt and reminded to check out at waterfront director upon discharge. Ed ucated pt to contact clinic if experiencing temp greater than 100.4, chills, s/s of infectio n or bleeding, inability to swallow or keep down liquids or pills. Pt verbalized understand ing. Patient ambulated independently out of clinic with daughter, who is also ice delivery driver. in this encounter Plan of [...] | | | | | [place], | | | | | | [place] [address] | | | | | | [phone] | | | | | | | [...] | + + + | Blood | [facility], TRANSFUSION MEDICINE [address] | | | [address] [place] [address] | + + + ANTIBODY SCREEN (05/17/2018 3:49 PM) + + + + | Component | Value | Ref Range | + + + + | Antibody Screen | Negative | | + + + + + + + | Specimen | Performing Laboratory | + + + | Blood | [facility], TRANSFUSION MEDICINE [address] | | | [place] [address] | + + + ABO & RH [...] | + + + | Blood | [facility], TRANSFUSION MEDICINE [address] [place] [address] | | | [place] [address] | + + + TYPE AND SCREEN [...] | ------ ABO & RH | | TYPE[[id number]] F | | inal result ANTIBODY | | SCREEN[[id number]] Fin | | al result Please view [...] + + | PRODUCT UNIT # | [id number] | | + + + + | UNIT ABO | O | | + + + + | UNIT RH | POS | | + + + + | STATUS OF UNIT | Presumed Transfused | | + + + + | EXPIRATION DATE | [id number] | | + + + + | BLOOD TYPE BARCODE | 5100 | | + + + + | BLOOD PRODUCT CODE | [id number] | | + + + + + + + | Specimen | Performing Laboratory | + + + | | [facility], TRANSFUSION MEDICINE [address] [facility] | | | [place] [address] | + + + in this encounter Visit Diagnoses + + | Diagnosis | + + | Aplastic anemia (HCC) - Primary | + + | Aplastic anemia, unspecified | + +"
[~2018-05-29 18:05] MED LIST changes: +DANAZOL100 MG PO; +FLUDROCORTISON0.1 MG PO; +LEVAQUIN750 MG PO; +LEVOFLOXACIN250 MG PO; +MEGACE ES625 MG/5 M PO; +METAMUCIL0.52 GM PO; +MIDODRINE HCL5 MG PO; +NPLATE250 MCG SUB-Q; +ONDANSETRON HCL8 MG PO
== END 2018-05-29 18:47 | disposition home or self-care (01) ==
LOC: ED 18:05
DX: S00.82XA Blister (nonthermal) of other part of head, initial encounter (principal); X58.XXXA Exposure to other specified factors, initial encounter; E78.5 Hyperlipidemia, unspecified; Z88.8 Allergy status to other drugs, medicaments and biological substances; Z79.899 Other long term (current) drug therapy; Z79.2 Long term (current) use of antibiotics
CPT/HCPCS: 99282

== ENCOUNTER 2018-07-09 20:16 | Emergency (ER) | payer MEDICARE, OTHER ==
[~2018-07-09] VITALS: Ht 152.4 cm; Wt 49.4 kg
--- OUTSIDE RECORDS SUMMARY | ~2018-07-09 | XMS | Clinical Summary ---
Demographics + + + | Address | [address] | | | [place] [address] | + + + | Home Phone | | + + + | Preferred Language | Unknown | + + + | Marital Status | | + + + | Episcopalian Affiliation | Unknown | + + + | Race | Unknown | + + + | Ethnic Group | Unknown | + + + Author + + + | Author | [facility] | | | and [place] | + + + | Organization | [facility] | | | and [place] | + + + | Address | [...] | | + + +---------+ + | AntoinetteLexi | ECON | Unknown | | + + +---------+ + Care Team Providers + +------+ + | Care Route Clerk Name | Role | Phone | + +------+ + | Zion Esposito MD | PP | | + +------+ + Allergies + + + + + + | Active Allergy | Reactions | Severity | Noted | Comments | | | | | Date | | + + + + + + | Atorvastatin | | | 04/04/20 | | | | | | 18 | | + + + + + + | Simvastatin | | | 04/04/20 | | | | | | 18 | | + + + + + + Current Medications + + +--------+---------+------+------+-------+ | Prescription | Sig. | Disp. | Refills | Star | End | Statu | | | | | | t | Date | s | | | | | | Date | | | + + +--------+---------+------+------+-------+ | | Take 1 tablet by | | | | | Activ | | loratadine-pseudoePH | mouth as needed for | | | | | e | | EDrine (CLARITIN-D | Allergies. | | | | | | | 24 HOUR) 10-240 mg | | | | | | | | per tablet | | | | | | | + + +--------+---------+------+------+-------+ | rosuvastatin | Take 20 mg by mouth | | | | | Activ | | (CRESTOR) 20 mg | nightly. | | | | | e | | tablet | | | | | | | + + +--------+---------+------+------+-------+ | fluticasone | 1 spray by Nasal | | | | | Activ | | (FLONASE) 50 | route as needed for | | | | | e | | mcg/nasal spray | Allergies. | | | | | | + + +--------+---------+------+------+-------+ | aluminum & | Take 30 mLs by mouth | | | | | Activ | | magnesium | every 4 hours as | | | | | e | | hydroxide-simethicon | needed for | | | | | | | e (MAALOX PLUS | Indigestion. | | | | | | | REGULAR STRENGTH) | | | | | | | | 200-200-20 mg/5 mL | | | | | | | | suspension | | | | | | | + + +--------+---------+------+------+-------+ | cyanocobalamin | Take 1,000 mcg by | | | | | Activ | | (VITAMIN B-12) 1000 | mouth Daily. | | | | | e | | MCG tablet | | | | | | | + + +--------+---------+------+------+-------+ | raNITIdine | Take 150 mg by mouth | | | | | Activ | | (ZANTAC) 150 mg | as needed for | | | | | e | | tablet | Heartburn. | | | | | | + + +--------+---------+------+------+-------+ | ALPRAZolam (XANAX) | Take 1 tablet by | | | 04/0 | | Activ | | 0.25 mg tablet | mouth as needed. | | | 3/20 | | e | | | | | | 18 | | | + + +--------+---------+------+------+-------+ | polyethylene | Take 17 g by mouth | | | | | Activ | | glycol (MIRALAX) | Daily. | | | | | e | | powder | | | | | | | + + +--------+---------+------+------+-------+ | TRAZODONE HCL PO | Take by mouth | | | | | Activ | | | nightly as needed. | | | | | e | + + +--------+---------+------+------+-------+ | Acetaminophen | Take by mouth. | | | | | Activ | | (TYLENOL PO) | | | | | | e | + + +--------+---------+------+------+-------+ | DIPHENHYDRAMINE | Take by mouth as | | | | | Activ | | HCL PO | needed. | | | | | e | + + +--------+---------+------+------+-------+ | ondansetron | Take 1 tablet by | 20 | 3 | 05/2 | | Activ | | (ZOFRAN) 8 MG tablet | mouth every 8 hours | tablet | | 1/20 | | e | | | as needed for | | | 18 | | | | | Nausea. May take | | | | | | | | twice daily for two | | | | | | | | days after chemo; or | | | | | | | | one tab every eight | | | | | | | | hours as needed for | | | | | | | | nausea | | | | | | + + +--------+---------+------+------+-------+ Active Problems + + + | Problem | Noted Date | + + + | Aplastic anemia (HCC) | 01/31/2018 | + + + | Pancytopenia (HCC) | 01/17/2018 | + + + Encounters +--------+ + + + + | Date | Type | Specialty | Care Team | Description | +--------+ + + + + | 05/04/ | Orders Only | | [facility] | [facility] ([facility] | | 2017 | | | Jer Miller MD | (Primary Dx) | +--------+ + + + + | 04/12/ | Telephone | | [facility] | Other | | 2017 | | | Jer Miller MD | | +--------+ + + + + from Last 3 Months Social History + +-------+ +--------+------+ | Tobacco Use | Types | Packs/Day | Years | Date | | | | | Used | | + +-------+ +--------+------+ | Former Smoker | | | 3 | | + +-------+ +--------+------+ + +---+---+---+ | Smokeless Tobacco: | | | | | Never Used | | | | + +---+---+---+ + + | Comments: states she smoked a little when she was young, states it has been decades ago | + + + + +---------+ + | Alcohol Use | Drinks/We | oz/Week | Comments | | | ek | | | + + +---------+ + | Yes | | | occasional | + + +---------+ + + + + | Sex Assigned at | Date Recorded | | | | + + + | Not on file | | + + + Last Filed Vital Signs + + + + | Vital Sign | Reading | Time Taken | + + + + | Blood Pressure | 106/61 | 01/31/20181312 PDT | + + + + | Pulse | 61 | 01/31/20181312 PDT | + + + + | Temperature | 36.4 C (97.5 F) | 01/31/20181312 PDT | + + + + | Respiratory Rate | 16 | 01/31/20181312 PDT | + + + + | Oxygen Saturation | 96% | 01/31/2018 1111 PDT | + + + + | Inhaled Oxygen | - | - | | Concentration | | | + + + + | Weight | 58.9 kg (129 lb 13.6 | 01/31/2018 1111 PDT | | | oz) | | + + + + | Height | 154.9 cm (5' 1") | 01/17/2018 1111 PDT | + + + + | Body Mass Index | 24.54 | 01/31/2018 1111 PDT | + + + + Plan of Treatment + + + + + | Health Maintenance | Due Date | Last Done | Comments | + + + + + | Hepatitis C | | | | | Screening | 6 | | | + + + + + | Vaccine: | | | | | Dtap/Tdap/Td (1 - | 5 | | | | Tdap) | | | | + + + + + | BREAST CANCER | | | | | SCREENING (MAMM Q2 | 6 | | | | YEARS 50-74) | | | | + + + + + | Colorectal Cancer | | | | | Screening | 6 | | | | (Colonoscopy) | | | | + + + + + | Vaccine: Zoster (1 | | | | | of 2) | 6 | | | + + + + + | Vaccine: | | | | | Pneumococcal 65+ | 1 | | | | Low/Medium Risk (1 | | | | | of 2 - PCV13) | | | | + + + + + | Vaccine: Influenza | | | | | (#1) | 8 | | | + + + + + Procedures + +--------+ + + + | Procedure Name | Priori | Date/Time | Associated Diagnosis | Comments | | | ty | | | | + +--------+ + + + | LABS - EXTERNAL SCAN | | 06/21/2018 | | Results for this | | | | 0000 PDT | | procedure are in the | | | | | | results section. | + +--------+ + + + | LABS - EXTERNAL SCAN | | 04/27/2018 | | Results for this | | | | 0000 PDT | | procedure are in the | | | | | | results section. | + +--------+ + + + | LABS - EXTERNAL SCAN | | 04/23/2018 | | Results for this | | | | 0000 PDT | | procedure are in the | | | | | | results section. | + +--------+ + + + from Last 3 Months Results LABS - EXTERNAL SCAN (06/21/2018)Only the most recent of 3 results within the time period i s included. + + + | Narrative | Performed At | + + + | Ordered by an | | | unspecified provider. | | + + + from Last 3 Months Insurance + +--------+ +--------+ + + | Payer | Benefi | Subscriber | Type | Phone | Address | | | t Plan | ID | | | | | | / | | | | | | | Group | | | | | + +--------+ +--------+ + + | MEDICARE | MEDICA | [id number] | Medica | [phone] | | | RE | | re | [phone] | | | | PART A | | | | | | | AND B | | | | | + +--------+ +--------+ + + | MODA | MODA | [id number] | Indemn | [phone] | [address] [address] | | | HEALTH | | ity | [phone] | [place] [address] | | | MDCR | | | | | | | SUPPL | | | | | + +--------+ [...] | Self [birth year] Home: | [address] | | | al/Fam | | [phone] | [phone] | [place] [address] | | | srinivas | | | [phone] | | + +--------+ +--------+ + +
--- OUTSIDE RECORDS SUMMARY | ~2018-07-09 | XMS | Encounter Summary ---
Demographics + + + | Address | [address] | | | [place] [address] | + + + | Home Phone | | + + + | Preferred Language | Unknown | + + + | Marital Status | | + + + | Anabaptist Affiliation | Unknown | + + + | Race | White | + + + | Ethnic Group | Not or | + + + Author + + + | Author | [facility] | + + + | Organization | [facility] | + + + | Address [...] Team Providers + +------+ + | Care Door Paneler Name | Role | Phone | + [...] [place] | | | | | | [facility] | | | | | | Mailcode: UHN73A | | | | | | [place] | | | | | | [place], [place] | | | | | | [address] | | | | | | [phone] | | | +--------+ + + + [...] | | | | | [place], | | | | | | [place] [address] | | | | | | [phone] | | | | | | | [...] | | | | PDT | ([facility]) | results section. | + +--------+ + + + | LDH TOTAL, PLASMA | Routin | 05/17/2018 | Aplastic anemia, | Results for this | | | e | 1:49 PM | idiopathic, acquired | procedure are in the | | | | PDT | ([facility]) | results section. | + +--------+ [...] | [address] | [place], [place] | | | [place] POINT OF CARE | [facility] | [address] | | | TESTS | | | [...] - MARQUAM | | | | | KEV[place], POINT OF | | | | | [...] 0.0 - 2.0 % | [facility] - [facility]EM[facility] | | | | | K[place], POINT [...] | [address] | [place], [place] | | | [place] POINT OF CARE | [address] | [address] | | | TESTS | | | [...] EPO (NEJM | | | | | [phone],1989).Perf | | | | | ormed by [facility] | | | | | Laboratories,[address] | | | | | [place], [facility] [address] | | | | | [phone].aruplab. | | | | | Sebastian wilkerson [...] [facility] | [address] | [place], [place] | | | UNIV PTH - INTFC | | [address] | | + + + + + [...] [facility] | [address] | [place] [address] | | | SERVICES, CORE | [address] | | | + + + + + in this encounter Visit Diagnoses + + | Diagnosis | + + | Aplastic anemia, idiopathic, acquired (HCC) | + + | Other specified aplastic anemias | + +"
--- OUTSIDE RECORDS SUMMARY | ~2018-07-09 | XMS | Encounter Summary ---
Demographics + + + | Address | [address] | | | [place] [address] | + + + | Home Phone | | + + + | Preferred Language | Unknown | + + + | Marital Status | | + + + | Spiritism Affiliation | Unknown | + + + | Race | White | + + + | Ethnic Group | Not or | + + + Author + + + | Author | [facility] | + + + | Organization | [facility] | + + + | Address | [...] Team Providers + +------+ + | Care Dining Room Host Name | Role | Phone | + +------+ + | Reginaldo Briggs MD | PCP | | + +------+ + Reason for Visit + + + | Reason | Comments | + + + | Transfusion | 1 unit platelets | + + + Encounter Details +--------+ + + + + | Date | Type | Department | Care Team | Description | +--------+ + + + + | 05/17/ | Hospital | [facility] | | | | 2018 | Encounter | Hematologic | | | | | | Malignancies at [facility] | | | | | | [address] | | | | | | [facility] | | | | | | Mailcode: [address]A | | | | | | [place] | | | | | | [place], [place] | | | | | | [address] | | | | | | [phone] | | | +--------+ + + + [...] + + + + in this encounter Medications at Time of Discharge + + +---------+---------+ + + | Medication | Sig. | Disp. | Refills | Start | End Date | | | | | | Date | | + + +---------+---------+ + + | cycloSPORINE 100 | | | | 03/23/20 | | | mg oral capsule | | | | 18 | | + + +---------+---------+ + + | cycloSPORINE 25 mg | | | | 04/29/20 | | | oral capsule | | | | 18 | | + + +---------+---------+ + + | danazol 100 mg | Take 1 capsule by | 90 | 1 | 05/17/20 | | | oral capsule | mouth three times | capsule | | 18 | | | | daily. | | | | | + + +---------+---------+ + + | fluconazole 200 mg | | | | 04/20/20 | | | oral tablet | | | | 18 | | + + +---------+---------+ + + | levoFLOXacin 750 | | | | 04/20/20 | | | mg oral tablet | | | | 18 | | + + +---------+---------+ + + | midodrine 5 mg | | | | 05/15/20 | | | oral tablet | | | | 18 | | + + +---------+---------+ + + | PROMACTA 75 mg | | | | 04/27/20 | | | oral tablet | | | | 18 | | + + +---------+---------+ + + | traZODone 50 mg | Take 50 mg by mouth | | | | | | oral tablet | once daily at | | | | | | | bedtime. | | | | | + + +---------+---------+ + + | valACYclovir 500 | | | | 04/20/20 | | | mg oral tablet | | | | 18 | | + + +---------+---------+ + + as of this encounter Progress Notes Moi Shrestha, RENNY - 05/17/2018 3:37 PM PDTFormatting of this note may be different fro m the original. Patient ambulated independently into clinic with daughters. Hx of aplastic anemia. In clin ic for platelet transfusion. Nursing Assessment Pain: Denies Fever or chills: Denies Fatigue or sleep disturbance: C/o fatigue Dizziness: Denies Dyspnea, cough: Denies Signs of bleeding: Scattered bruising Nausea, vomiting or loss of appetite: Denies Fluid intake: States adequate fluid intake Diarrhea or constipation: Denies Edema: Denies Rash: Denies Vascular Access: Right AC gauge PIV placed in patient s right antcubitae, using an IV start kit. PIV with excellent blood return. Labs drawn and sent. PIV flushed with 10 mL NS without any problems . Sterile transparent dressing applied. Patient tolerated procedure well. Per infusion plan: Lab Results Component Value Date PLT 8 05/17/2018 Orders to transfuse platelet product for a platelet count today as above. Each unit was melani cked by two RNs to confirm the unit number, ABO and Rh type printed on tag matched informati on on blood bag and to confirm crossmatch compatibility. At the bedside, two RNs verified t he correct patient using two unique identifiers, confirmed the unit number, ABO and Rh type printed on tag matched the information on blood bag and confirmed crossmatch compatibility. Informed consent was verified. The patient was not premedicated. She received 1 unit of platelets per Provider s orders . Transfusion was tolerated well without complication. Frequent vital signs were monitored throughout the transfusion and reviewed by me. For transfusion details, see ONC Lines & Tr ansfusions doc flowsheet. Education: Reviewed next appt time with pt and reminded to check out at front maker lockstitch upon discharge. Ed ucated pt to contact clinic if experiencing temp greater than 100.4, chills, s/s of infectio n or bleeding, inability to swallow or keep down liquids or pills. Pt verbalized understand ing. Patient ambulated independently out of clinic with daughter, who is also wedding transportation driver. in this encounter Plan of Treatment +--------+ [...] | | | | | [place], | | | | | | [place] [address] | | | | | | [phone] | | | | | | | [...] + + + in this encounter Results CONFIRMATORY ABO/RH (05/17/2018 3:49 PM) + [...] | + + + + + | [facility] | [address] | [place] [address] | | | SERVICES, | [address] [...] | + + + + + | [facility] | [address] | [place] [address] | | | SERVICES, | [address] | | | | TRANSFUSION MEDICINE | | | | + + + + + ABO & RH TYPE (05/17/2018 3:49 PM) + + + + + | Component | Value | Ref Range | Performed At | + + + + + | ABO Group | B | | [facility] | | | | | SERVICES, [...] [facility] | [address] | [place] [address] | | | SERVICES, | [address] [...] + + | PRODUCT UNIT # | [id number] | | [facility] | | | [...] + + + | EXPIRATION DATE | [id number] | | [facility] | | | [...] + + | BLOOD PRODUCT CODE | [id number] | | [facility] | | | | | SERVICES, | | | | | TRANSFUSION | | | | | MEDICINE | + + + + + + + + + + | Performing | Address | City/State/Zipcode | Phone Number | | Organization | | | | + + + + + | [facility] | [address] | [place] [address] | | | SERVICES, | [address] | | | | TRANSFUSION MEDICINE | | | | + + + + + in this encounter Visit Diagnoses + + | Diagnosis | + + | Aplastic anemia (HCC) - Primary | + + | Aplastic anemia, unspecified | + +"
--- OUTSIDE RECORDS SUMMARY | ~2018-07-09 | XMS | Encounter Summary ---
Demographics + + + | Address | [address] | | | [place] [address] | + + + | Home Phone | | + + + | Preferred Language | Unknown | + + + | Marital Status | | + + + | Moravian Affiliation | Unknown | + + + | Race | White | + + + | Ethnic Group | Not or | + + + Author + + + | Author | [facility] | + + + | Organization | [facility] | + + + | Address [...] Team Providers + +------+ + | Care Vacuum Metalizing Supervisor Name | Role | Phone | + [...] 2017 | | Hematologic | Naomie RN [address] | | | | | Malignancies at | [address] | | | | | [place] [address] | [place], [place] | | | | | [address] | [address] | | | | | [address] | [phone] | | | | | Mailcode: [id number] | | | | | | [address] | | | | | | [place], [place] | | | | | | [address] | | | | | | [phone] | | | +--------+ + + + [...] | | | | | Michelle Silva [employer], | | | | | | [place] [address] | | | | | | [phone] | | | | | | | | +--------+ + + + + as of this encounter Visit Diagnoses Not on filein this encounter"
--- OUTSIDE RECORDS SUMMARY | ~2018-07-09 | XMS | Encounter Summary ---
Demographics + + + | Address | [address] | | | [place] [address] | + + + | Home Phone | | + + + | Preferred Language | Unknown | + + + | Marital Status | | + + + | Hoahaoism Affiliation | Unknown | + + + | Race | Unknown | + + + | Ethnic Group | Unknown | + + + Author + + + | Author | [facility] | | | and [place] | + + + | Organization | [facility] | | | and [place] [...] Team Providers + +------+ + | Care Hydroblaster Name | Role | Phone | + [...] [place] | | | | | [address] [place] | [place] [address] | | | | | [place] [address] | [phone] | | | | | [phone] | | | +--------+ + + + [...]
--- OUTSIDE RECORDS SUMMARY | ~2018-07-09 | XMS | Encounter Summary ---
Demographics + + + | Address | [address] | | | [place] [address] | + + + | Home Phone | | + + + | Preferred Language | Unknown | + + + | Marital Status | | + + + | Samaritan Affiliation | Unknown | + + + | Race | White | + + + | Ethnic Group | Not or | + + + Author + + + | Author | [facility] | + + + | Organization | [facility] | + + + | [...] Team Providers + +------+ + | Care Record Press Tender Name | Role | Phone | + [...] | Visit | Hematologic | [address] | idiopathic, acquired | | | | Malignancies at | [address] [place], | ([facility]) (Primary Dx) | | | | [place] | [place] [address] | | | | | [address] | [phone] | | | | | [address] | | | | | | Mailcode: [address] | | | | | | [place] [address] | | | | | | [place], [place] | | | | | | [address] | | | | | | [phone] | | | +--------+---------+ + + + [...] three times daily... Prescription sent to local [facility] with [address] Gamboa should [...] Dr. Gamboa Visit with Dr. Fuentes or [facility]/PA: 2 months (July) PLEASE REMEMBER I HAVE A TEAM OF CHAIR LIFT OPERATOR TO HELP ME TAKE CARE OF [...] QUESTIONS: Please call the Triage Nurse at [phone] or [phone] (Monday - Monday 8:30-4:30). During after hours, holiday s, and weekends, please call [phone] and ask to have the BMT Person senior functional analyst paged. FOR PRESCRIPTIONS: Please allow >72 hours [...] ED and received hydration. Admitted to hosp [facility] for two nights for this episode. Today: [...] BMBx Final Pathologic Diagnosis Peripheral blood, smear ([email or web address], MB-18-23, 01/26/2018): - Leukopenia with absolute neutropenia and absolute monocytopenia. - Normocytic normochromic anemia. - Thrombocytopenia. 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 Ms. Bhatia's transfusion requirements are the same/somewhat [...] | | | | | [address] Silva [place], | | | | | | [place] [address] | | | | | | [phone] | | | | | | | [...] (H) | 0.3 - 1.2 mg/dL | [facility] | | POC | | | KEVYN, POINT OF | | | | | CARE TESTS | + +---------+ + + | ALBUMIN, CMP POC | 3.3 (L) | 3.5 - 4.7 g/dL | [facility] | | | | | KEV[place], POINT OF | | | | | CARE TESTS | + +---------+ + + | PROTEIN TOTAL, CMP | 6.7 | 6.1 - 7.9 g/dL | [facility] | | POC | | [...] | [address] | [place], [place] | | | KEV[place] POINT OF CARE | [address] | [address] | | | TESTS | | | [...] | [address] | [place], [place] | | | KEV[place] POINT OF CARE | [address] | [address] | | | TESTS | | | [...] EPO (NE | | | | | [phone],1989).Perf | | | | | ormed by [facility] | | | | | Laboratories,[address] | | | | | [place] [address] | | | | | [phone].[email or web address]. | | | | | Sebastian wilkerson [...] [facility] | [address] | [place], [place] | | | UNIV PTH - INTFC | | [address] | | + + + + + LDH TOTAL, PLASMA (05/17/2018 1:49 PM) + +---------+ + + | Component | Value | Ref Range | Performed At | + +---------+ + + | LD TOTAL, PLASMA | 191 | <=250 U/L | [facility] | | | | | SERVICES, [...] [facility] | [address] | [place] [address] | | | [address] | [address] | | | + + + + + in this encounter Visit Diagnoses + + | Diagnosis | + + | Aplastic anemia, idiopathic, acquired (HCC) - Primary | + + | Other specified aplastic anemias | + +"
--- OUTSIDE RECORDS SUMMARY | ~2018-07-09 | XMS | Encounter Summary ---
Demographics + + + | Address | [address] | | | [place] [address] | + + + | Home Phone | | + + + | Preferred Language | Unknown | + + + | Marital Status | | + + + | Yarsani Affiliation | Unknown | + + + | Race | Unknown | + + + | Ethnic Group | Unknown | + + + Author + + + | Author | [facility] | | | and [place] | + + + | Organization | [facility] | | | and [...] Team Providers + +------+ + | Care Flight Radio Operator Name | Role | Phone | [...] [place] | | | | | [address] [place] | [place] [address] | | | | | [place] [address] | [phone] | | | | | [phone] | | | +--------+ + + + [...]
--- OUTSIDE RECORDS SUMMARY | ~2018-07-09 | XMS | Encounter Summary ---
Demographics + + + | Address | [address] | | | [place] [address] | + + + | Home Phone | | + + + | Preferred Language | Unknown | + + + | Marital Status | | + + + | Taoism Affiliation | Unknown | + + + | Race | White | + + + | Ethnic Group | Not or | + + + Author + + + | Author | [facility] | + + + | Organization | [facility] | + + + | [...] Team Providers + +------+ + | Care Milk Pickup Truck Driver Name | Role | Phone | + +------+ + | Reginaldo Briggs MD | PCP | | + +------+ + Reason for Visit + + + | Reason | Comments | + + + | Lack of appetite | "feeling full" | + + + | Weight loss | down 20 lbs since january | + + + | Lab findings, | asking for Iron overload testing and MRI of the liver? | | teaching, guidance, | | | and counseling | | + + + | Referral | requesting nutrition consult | + + + | Dizziness | ER visits | + + + | Passing Out | | + + + Encounter Details +--------+ + + + + | Date | Type | Department | Care Team | Description | +--------+ + + + + | 05/03/ | Telephone | [facility] for | aCri Fuentes MD | Lack of appetite | | 2018 | | Hematologic | [address] | ("feeling full"); | | | | Malignancies at | [facility], | Weight loss (down 20 | | | | [place] | [place] [address] | lbs since january); | | | | [address] | [phone] | Lab findings, | | | | [facility] | | teaching, guidance, | | | | Mailcode: [id number] | | and counseling | | | | [place] | | (asking for Iron | | | | [place], [place] | | overload testing and | | | | [address] | | MRI of the liver?); | | | | [phone] | | Referral | | | | | | (requesting | | | | | | nutrition consult); | | | | | | Dizziness (ER visits | | | | | | ); Passing Out | +--------+ + + + + Social [...] | | | | | Michelle Silva [place], | | | | | | [place] [address] | | | | | | [phone] | | | | | | | | +--------+ + + + + as of this encounter Visit Diagnoses Not on filein this encounter
--- OUTSIDE RECORDS SUMMARY | ~2018-07-09 | XMS | Encounter Summary ---
Demographics + + + | Address | [address] | | | [place] [address] | + + + | Home Phone [...] Team Providers + +------+ + | Care Manager Convention Name | Role | Phone | + [...] + + | 05/17/ | Hospital | [facility] | | | | 2018 | Encounter | Hematologic | | | | | | Malignancies at [facility] | | | | | | [address] | | | | | | [facility] | | | | | | Mailcode: [id number] | | | | | | [place] | | | | | | [place], [place] | | | | | | [address] | | | | | | [phone] | | | +--------+ + + + [...] pt and reminded to check out at supervisor front upon discharge. Ed ucated pt to contact clinic if experiencing temp greater than 100.4, chills, s/s of infectio n or bleeding, inability to swallow or keep down liquids or pills. Pt verbalized understand ing. Patient ambulated independently out of clinic with daughter, who is also pick up and delivery driver. in this encounter Plan of Treatment [...] | | | | | Michelle Silva [place], | | | | | | [place] [address] | | | | | | [phone] | | | | | | | [...] | + + + + + | [facility] | [address] | [place] [address] | | | SERVICES, | [address] [...] | + + + + + | [facility] | [address] | [place] [address] | | | SERVICES, | [address] | | | | TRANSFUSION MEDICINE | | | | + + + + + ABO & RH TYPE (05/17/2018 3:49 PM) + + + + + | Component | Value | Ref Range | Performed At | + + + + + | ABO Group | B | | [facility] | | | | | SERVICES, [...] [facility] | [address] | [place] [address] | | | SERVICES, | [address] [...] + + | PRODUCT UNIT # | [id number] | | [facility] | | | [...] + + + | EXPIRATION DATE | [id number] | | [facility] | | | [...] + + | BLOOD PRODUCT CODE | [id number] | | [facility] | | | | | SERVICES, | | | | | TRANSFUSION | | | | | MEDICINE | + + + + + + + + + + | Performing | Address | City/State/Zipcode | Phone Number | | Organization | | | | + + + + + | [facility] | [address] | [place] [address] | | | SERVICES, | [address] | | | | TRANSFUSION MEDICINE | | | | + + + + + in this encounter Visit Diagnoses + + | Diagnosis | + + | Aplastic anemia (HCC) - Primary | + + | Aplastic anemia, unspecified | + +"
--- OUTSIDE RECORDS SUMMARY | ~2018-07-09 | XMS | Clinical Summary ---
Demographics + + + | Address | [address] | | | [place] [address] | + + + | Home Phone | | + + + | Preferred Language | Unknown | + + + | Marital Status | | + + + | Religion Affiliation | Unknown | + + + [...] Team Providers + +------+ + | Care Sheet Mill Supervisor Name | Role | Phone | + +------+ + | Reginaldo Briggs MD | PP | | + +------+ + Source Comments [facility] is fully live on both EpicCare Ambulatory and EpicCare InPatient.[facility] Allergies + + + [...] | | | | | N[place] Silva [place], | | | | | | [place] [address] | | | | | | [phone] | | | | | | | [...] the | | | | PDT | ([facility]) | results section. | + +--------+ + + + | CBC+DIFF,POC | Routin | 05/17/2018 | Aplastic anemia, | Results for this | | | e | 2:12 PM | idiopathic, acquired | procedure are in the | | | | PDT | ([facility]) | results section. | + +--------+ + + + | ERYTHROPOIETIN, | Routin | 05/17/2018 | Aplastic anemia, | Results for this | | SERUM | e | 1:49 PM | idiopathic, acquired | procedure are in the | | | | PDT | ([facility]) | results section. | + +--------+ + + + | LDH TOTAL, PLASMA | Routin | 05/17/2018 | Aplastic anemia, | Results for this | | | e | 1:49 PM | idiopathic, acquired | procedure are in the | | | | PDT | ([facility]) | results section. | + +--------+ [...] LABORATORY | [address] | [place] [address] | | | SERVICES, | [address] [...] | + + + + + | [facility] | [address] | [place] [address] | | | SERVICES, | [address] [...] [facility] | [address] | [place] [address] | | | SERVICES, | [address] [...] + + | PRODUCT UNIT # | [id number] | | [facility] | | | [...] + + + | EXPIRATION DATE | [id number] | | [facility] | | | [...] + + | BLOOD PRODUCT CODE | [id number] | | [facility] | | | | | SERVICES, | | | | | TRANSFUSION | | | | | MEDICINE | + + + + + + + + + + | Performing | Address | City/State/Zipcode | Phone Number | | Organization | | | | + + + + + | [facility] | [address] | [place] [address] | | | SERVICES, | [address] [...] | [address] | [place], [place] | | | KEVYN POINT OF CARE | [address] | [address] | | | TESTS | | | [...] | [address] | [place], [place] | | | KEVYN POINT OF CARE | [facility] | [address] | | | TESTS | | | [...] | | | | | EPO (BANNER | | | | | [id number],1989).Perf | | | | | ormed by [facility] | | | | | Laboratories,[address] | | | | | [place], [place] [address] | | | | | [phone]. | | | | | [facility], Sebastian Johnson MD, | | | | [...] [facility] | [address] | [place], [place] | | | UNIV PTH - INTFC | | [address] | | + + + + + LDH TOTAL, PLASMA (05/17/2018 1:49 PM) + +---------+ + + | Component | Value | Ref Range | Performed At | + +---------+ + + | LD TOTAL, PLASMA | 191 | <=250 U/L | [facility] | | | | | SERVICES, [...] | + + + + + | [facility] | [address] | [place] [address] | | | SERVICES, CORE | [address]UN[address] [...] | MEDICA | xxxxxxxxxx | Medica | [phone] | [address] | | | RE A & | | re | [phone] | [place] [address] | | | B | | | | | + +--------+ +--------+ + + | MODA MEDICARE | MODA | xxxxxxxxx | POS | [phone] | [address] [address] | | SUPPLEMENT | MEDICA | | | [phone] | [place] [address] | | | RE | | | [...] | Self | [birth year] | Home: | [address] | | | al/Fam | | 1945 | [phone] | [place] [address] | | | srinivas | | | [phone] | | + +--------+ +--------+ + +
--- OUTSIDE RECORDS SUMMARY | ~2018-07-09 | XMS | Clinical Summary ---
Demographics + + + | Address | [address] | | | [place] [address] | + + + | Home Phone | | + + + | Preferred Language | Unknown | + + + | Marital Status | | + + + | Samaritan Affiliation | Unknown | + + + | Race | Unknown | + + + | Ethnic Group | Unknown | + + + Author + + + | Author | [facility] | | | and [place] | + + + | Organization | [facility] | | | and [place] | [...] Team Providers + +------+ + | Care Thread Cutter Name | Role | Phone | + [...] Orders Only | | Obed | Darron ([facility]) | | 2017 | | | Jer [...] + + | MEDICARE | MEDICA | [id number] | Medica | [phone] | | | RE | | re | [phone] | | | | PART A | | | | | | | AND B | | | | | + +--------+ +--------+ + + | MODA | MODA | [id number] | Indemn | [phone] | [address] [address] | | | HEALTH | | ity | [address] | [place] [address] | | | MDCR | | | [...] | Self | [birth year] | Home: | [address] | | | al/Fam | | 1945 | [phone] | [place] [address] | | | srinivas | | | [phone] | | + +--------+ +--------+ + +
--- OUTSIDE RECORDS SUMMARY | ~2018-07-09 | XMS | Encounter Summary ---
Demographics + + + | Address | [address] | | | [place] [address] | + + + | Home Phone | | + + + | Preferred Language | Unknown | + + + | Marital Status | | + + + | Confucianist Affiliation | Unknown | + + + | Race | Unknown | + + + | Ethnic Group | Unknown | + + + Author + + + | Author | [facility] | | | and [place] | + + + | Organization | [facility] | | | and [place] [...] Providers + +------+ + | Care Milk Delivery Driver Name | Role | Phone | [...] [place] | | | | | [address] | [place] [address] | | | | | [place] [address] | [phone] | | | | | [phone] | | | +--------+ + + + [...]
--- OUTSIDE RECORDS SUMMARY | ~2018-07-09 | XMS | Encounter Summary ---
Demographics + + + | Address | [address] | | | [place] [address] | + + + | Home Phone | | + + + | Preferred Language | Unknown | + + + | Marital Status | | + + + | Faith Affiliation | Unknown | + + + | Race | Unknown | + + + | Ethnic Group | Unknown | + + + Author + + + | Author | [facility] | | | and [place] | + + + | Organization | [facility] | | | and [place] | [...] Team Providers + +------+ + | Care Bench Assembler Name | Role | Phone | + [...] [place] | | | | | [address] | [place] [address] | | | | | [place] [address] | [phone] | | | | | [phone] | | | +--------+ + + + [...]
--- OUTSIDE RECORDS SUMMARY | ~2018-07-09 | XMS | Encounter Summary ---
Demographics + + + | Address | [address] | | | [place] [address] | + + + | Home Phone | | + + + | Preferred Language | Unknown | + + + | Marital Status | | + + + | Buddhism Affiliation | Unknown | + + + | Race | White | + + + | Ethnic Group | Not or | + + + Author + + + | Author | [facility] | + + + | Organization | [facility] | + + + | Address | [...] Team Providers + +------+ + | Care Chief Nuclear Medicine Technologist Name | Role | Phone | + [...] | | | | Malignancies at | [address] [place], | | | | | [place] | [place] [address] | | | | | [address] | [phone] | | | | | [facility] | | | | | | Mailcode: [id number] | | | | | | [place] | | | | | | [place], [place] | | | | | | [address] | | | | | | [phone] | | | +--------+ + + + [...] | | | | | Michelle Silva [place], | | | | | | [place] [address] | | | | | | [phone] | | | | | | | | +--------+ + + + + as of this encounter Visit Diagnoses Not on filein this encounter"
--- OUTSIDE RECORDS SUMMARY | ~2018-07-09 | XMS | Clinical Summary ---
Demographics + + + | Address | [address] | | | [place] [address] | + + + | Home Phone | | + + + | Preferred Language | Unknown | + + + | Marital Status | | + + + | Anabaptism Affiliation | Unknown | + + + [...] Team Providers + +------+ + | Care Desk Representative Name | Role | Phone | + +------+ + | Reginaldo Briggs MD | PP | | + +------+ + Source Comments [facility] is fully live on both EpicCare Ambulatory and EpicCare InPatient.[facility] Allergies + + + + [...] | | | | | N[place], | | | | | | [place] [address] | | | | | | [phone] | | | | | | | [...] | | PDT | ([facility]) | results section. | + +--------+ + + + | CBC+DIFF,POC | Routin | 05/17/2018 | Aplastic anemia, | Results for this | | | e | 2:12 PM | idiopathic, acquired | procedure are in the | | | | PDT | ([facility]) | results section. | + +--------+ + + + | ERYTHROPOIETIN, | Routin | 05/17/2018 | Aplastic anemia, | Results for this | | SERUM | e | 1:49 PM | idiopathic, acquired | procedure are in the | | | | PDT | ([facility]) | results section. | + +--------+ + + + | LDH TOTAL, PLASMA | Routin | 05/17/2018 | Aplastic anemia, | Results for this | | | e | 1:49 PM | idiopathic, acquired | procedure are in the | | | | PDT | ([facility]) | results section. | + +--------+ [...] LABORATORY | [address] | [place] [address] | | | SERVICES, | [address] [...] | + + + + + | [facility] | [address] | [place] [address] | | | SERVICES, | [address] [...] [facility] | [address] | [place] [address] | | | SERVICES, | [address] [...] + + | PRODUCT UNIT # | [id number] | | [facility] | | | [...] + + + | EXPIRATION DATE | [id number] | | [facility] | | | [...] + + | BLOOD PRODUCT CODE | [id number] | | [facility] | | | | | SERVICES, | | | | | TRANSFUSION | | | | | MEDICINE | + + + + + + + + + + | Performing | Address | City/State/Zipcode | Phone Number | | Organization | | | | + + + + + | [facility] | [address] | [place] [address] | | | SERVICES, | [address] [...] | [address] | [place], [place] | | | KEV[place] POINT OF CARE | [address] | [address] | | | TESTS | | | [...] | [address] | [place], [place] | | | KEVYN POINT OF CARE | [facility] | [address] | | | TESTS | | | [...] recombinant | | | | | EPO ([facility] | | | | | [phone],1989).Perf | | | | | ormed by [facility] | | | | | Laboratories,[address] | | | | | [address], [place] [address] | | | | | [phone]. | | | | | [facility], Sebastian Johnson MD, | | | [...] [facility] | [address] | [place], [place] | | | UNIV PTH - INTFC | | [address] | | + + + + + LDH TOTAL, PLASMA (05/17/2018 1:49 PM) + +---------+ + + | Component | Value | Ref Range | Performed At | + +---------+ + + | LD TOTAL, PLASMA | 191 | <=250 U/L | [facility] | | | | | SERVICES, [...] | + + + + + | [facility] | [address] | [place] [address] | | | SERVICES, CORE | NUN[address] [...] | MEDICA | xxxxxxxxxx | Medica | [phone] | [address] | | | RE A & | | re | [address] | [place] [address] | | | B | | | | | + +--------+ +--------+ + + | MODA MEDICARE | MODA | xxxxxxxxx | POS | [phone] | [address] [address] | | SUPPLEMENT | MEDICA | | | [phone] | [place] [address] | | | RE | | | [...] | Self | [birth year] | Home: | [address] | | | al/Fam | | 1945 | [phone] | [place] [address] | | | srinivas | | | [phone] | | + +--------+ +--------+ + +
--- OUTSIDE RECORDS SUMMARY | ~2018-07-09 | XMS | Encounter Summary ---
Demographics + + + | Address | [address] | | | [place] [address] | + + + | Home Phone | | + + + | Preferred Language | Unknown | + + + | Marital Status | | + + + | Adventism Affiliation | Unknown | + + + | Race | White | + + + | Ethnic Group | Not or | + + + Author + + + | Author | [facility] | + + + | Organization | [facility] | + + + | [...] Team Providers + +------+ + | Care Leaf Conditioner Name | Role | Phone | + [...] | | | | Malignancies at | [address] [place], | | | | | [place] | [place] [address] | | | | | [address] | [phone] | | | | | [facility] | | | | | | Mailcode: [id number] | | | | | | [place] | | | | | | [place], [place] | | | | | | [address] | | | | | | [phone] | | | +--------+ + + + [...] | | | | | Michelle Silva [place], | | | | | | [place] [address] | | | | | | [phone] | | | | | | | | +--------+ + + + + as of this encounter Visit Diagnoses Not on filein this encounter"
--- OUTSIDE RECORDS SUMMARY | ~2018-07-09 | XMS | Encounter Summary ---
Demographics + + + | Address | [address] | | | [place] [address] | + + + | Home Phone | | + + + | Preferred Language | Unknown | + + + | Marital Status | | + + + | Islam Affiliation | Unknown | + + + | Race | White | + + + | Ethnic Group | Not or | + + + Author + + + | Author | [facility] | + + + | Organization | [facility] | + + + | Address [...] Team Providers + +------+ + | Care Special Machine Operator Name | Role | Phone [...] [address] | | | | | | [facility] | | | | | | Mailcode: [id number] | | | | | | [place] | | | | | | [place], [place] | | | | | | [address] | | | | | | [phone] | | | +--------+ + + + [...] | | | | | Nunu Silva [place], | | | | | | [place] [address] | | | | | | [phone] | | | | | | | [...] the | | | | PDT | ([facility]) | results section. | + +--------+ + + + | LDH TOTAL, PLASMA | Routin | 05/17/2018 | Aplastic anemia, | Results for this | | | e | 1:49 PM | idiopathic, acquired | procedure are in the | | | | PDT | ([facility]) | results section. | + +--------+ + [...] | [address] | [place], [place] | | | KEV[place] POINT OF CARE | [facility] | [address] | | | TESTS | | | [...] | [address] | [place], [place] | | | [place] POINT OF CARE | [address] | [address] | | | TESTS | | | [...] EPO ([facility] | | | | | [id number],1989).Perf | | | | | ormed by [facility] | | | | | Laboratories,[address] | | | | | [address], [facility] [place] [address] | | | | | [phone]. | | | | | Sebastian wilkerson [...] [facility] | [address] | [place], [place] | | | UNIV PTH - INTFC | | [address] | | + + + + + [...] [facility] | [address] | [place] [address] | | | SERVICES, CORE | [place] | | | + + + + + in this encounter Visit Diagnoses + + | Diagnosis | + + | Aplastic anemia, idiopathic, acquired (HCC) | + + | Other specified aplastic anemias | + +"
--- OUTSIDE RECORDS SUMMARY | ~2018-07-09 | XMS | Encounter Summary ---
Demographics + + + | Address | [address] | | | [place] [address] | + + + | Home Phone [...] + + + | Author | [facility] | + + + | Organization | [facility] | + + + | Address [...] Team Providers + +------+ + | Care Case Investigator Name | Role | Phone | + [...] 2017 | | Hematologic | Naomie RN [address] | | | | | Malignancies at | [address] | | | | | [place] | [place], [place] | | | | | [address] | [address] | | | | | [address] | [phone] | | | | | Mailcode: [id number] | | | | | | [place] | | | | | | [place], [place] | | | | | | [address] | | | | | | [phone] | | | +--------+ + + + [...] | | | | | Michelle Silva [place], | | | | | | [place] [address] | | | | | | [phone] | | | | | | | | +--------+ + + + + as of this encounter Visit Diagnoses Not on filein this encounter"
--- OUTSIDE RECORDS SUMMARY | ~2018-07-09 | XMS | Encounter Summary ---
Demographics + + + | Address | [address] | | | [place] [address] | + + + | Home Phone | | + + + | Preferred Language | Unknown | + + + | Marital Status | | + + + | Scientologist Affiliation | Unknown | + + + [...] Team Providers + +------+ + | Care Salesperson Floor Coverings Name | Role | Phone | + [...] | | | | Malignancies at | [facility], | Weight loss (down 20 | | | | [place] | [place] [address] | lbs since january); | | | | [address] | [phone] | Lab findings, | | | | [facility] | | teaching, guidance, | | | | Mailcode: [id number] | | and counseling | | | | [place] | | (asking for Iron | | | | [place], [place] | | overload testing and | | | | [address] | | MRI of the liver?); | | | | [phone] | | Referral | | | | [...] | | | | | Michelle Silva [place], | | | | | | [place] [address] | | | | | | [phone] | | | | | | | | +--------+ + + + + as of this encounter Visit Diagnoses Not on filein this encounter
--- OUTSIDE RECORDS SUMMARY | ~2018-07-09 | XMS | Encounter Summary ---
Demographics + + + | Address | [address] | | | [place] [address] | + + + | Home Phone | | + + + | Preferred Language | Unknown | + + + | Marital Status | | + + + | Orthodox Affiliation | Unknown | + + [...] Team Providers + +------+ + | Care Substation Maintenance Technician Name | Role | Phone | [...] | | Malignancies at | [address] [place], | ([facility]) (Primary Dx) | | | | [place] Guerra | [place] [address] | | | | | [address] | [phone] | | | | | [address] | | | | | | Mailcode: [id number] | | | | | | [place] Guerra | | | | | | [place], [place] | | | | | | [address] | | | | | | [phone] | | | +--------+---------+ + + + [...] three times daily... Prescription sent to local [facility] with [address] Gamboa should then [...] Dr. Gamboa Visit with Dr. Fuentes or MACHINIST WOOD/PA: 2 months (July) PLEASE REMEMBER I HAVE A TEAM OF CREDIT COLLECTIONS REP TO HELP ME TAKE CARE OF YOU. [...] call the Triage Nurse at or x [phone] (Monday - Monday 8:30-4:30). During after hours, holiday s, and weekends, please call [phone] and ask to have the BMT Person motion picture commentator paged. FOR PRESCRIPTIONS: Please allow >72 hours [...] BMBx Final Pathologic Diagnosis Peripheral blood, smear ([facility], MB-18-23, 01/26/2018): - Leukopenia with absolute neutropenia and absolute monocytopenia. - Normocytic normochromic anemia. - Thrombocytopenia. 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 Ms. Bhatia's transfusion requirements are the same/somewhat [...] | | | | | [place], | | | | | | [place] [address] | | | | | | [phone] | | | | | | | [...] (H) | 0.3 - 1.2 mg/dL | [facility] | | POC | | | [place], POINT OF | | | | | CARE TESTS | + +---------+ + + | ALBUMIN, CMP POC | 3.3 (L) | 3.5 - 4.7 g/dL | [facility] | | | | | [place], POINT OF | | | | | CARE TESTS | + +---------+ + + | PROTEIN TOTAL, CMP | 6.7 | 6.1 - 7.9 g/dL | [facility] | | POC | [...] | [address] | [place], [place] | | | [facility] POINT OF CARE | [address] | [address] | | | TESTS | | | [...] | [address] | [place], [place] | | | [facility] POINT OF CARE | [address] | [address] | | | TESTS | | | [...] EPO (NE | | | | | [phone],[phone]).Perf | | | | | ormed by [facility] | | | | | [facility],[address] | | | | | [place] [address] | | | | | [phone]. | | | | | Sebastian wilkerson [...] [facility] | [address] | [place], [place] | | | [facility] | | [address] | | + + + + + LDH TOTAL, PLASMA (05/17/2018 1:49 PM) + +---------+ + + | Component | Value | Ref Range | Performed At | + +---------+ + + | LD TOTAL, PLASMA | 191 | <=250 U/L | [facility] | | | | | SERVICES, [...] [facility] | [address] | [place] [address] | | | KAYLEE SALGUERO | [address] | | | + + + + + in this encounter Visit Diagnoses + + | Diagnosis | + + | Aplastic anemia, idiopathic, acquired (HCC) - Primary | + + | Other specified aplastic anemias | + +"
--- OUTSIDE RECORDS SUMMARY | 2018-07-09 20:20 | XMS ---
PreManage Notification: MARLYN ESTRADA Security Underwear Hemmer Events No recent Security Events currently on file CRITERIA MET - Group Notification - 6 ED Visits in 6 Months - [facility] CARE PROVIDERS ELEUTERIO BREAUX Internal Medicine: Medical Oncology 04/26/2018-Current C PHONE: [phone] [facility]-Current PHONE: [phone] Reginaldo Briggs MD Primary Care Current PHONE: Unknown orpedro Case or Hand Edge Bander Current PHONE: Unknown Guidelines Source: [facility] Guidelines Date: 06/14/2018 Care Coordination: PATIENT IS UNDER SERVICES AT [facility].\T\nbsp; IF PATIENT IS SEEN IN THE ED, PLEASE NOTIFY THEM AT [phone].\T\nbsp; IF AFTER HOURS OR ON WEEKENDS PLEASE CALL SWITCHBOARD AT [phone] AND HAVE ON-CALL RN NOTIFIED. Care History Medical/Surgical 04/26/2018 [facility] - Patient is currently established with [facility]. If patient is seen in the ED during business hours. Please contact CHWs at [facility] at [phone]. Care Recommendation: This patient has had 5 or more Emergency Department visits in the last 12 months.\T\nbsp; Patient requires education on the scope and purpose of the ED as an acute care provider not a Primary Care Provider and should not be utilized for chronic conditions.\T\nbsp; If patient returns to ED please contact Community Health WorkerLanny at [phone]. These are guidelines and the provider should exercise clinical judgment when providing care. E.D. VISIT COUNT (12 MO.) 6 [facility]. TOTAL 6 NOTE: Visits indicate total known visits. ED/UCC VISIT TRACKING (12 MO.) 07/09/2018 20:16 [facility] [place] TYPE: Emergency COMPLAINT: - POSS ALERGIC REACTION 05/29/2018 18:05 [facility] [place] TYPE: Emergency COMPLAINT: - MOUTH PAIN DIAGNOSES: - Hyperlipidemia, unspecified - Allergy status to other drugs, medicaments and biological substances status - Other fpc (current) drug therapy - termite exterminator helper (current) use of antibiotics - Blister (nonthermal) of other part of head, initial encounter - Exposure to other specified factors, initial encounter 05/10/2018 11:55 [facility] [place] [place] TYPE: Emergency COMPLAINT: - SYNCOPE 04/25/2018 10:23 [facility] [place] [place] TYPE: Emergency COMPLAINT: - WEAKNESS DIAGNOSES: - Weakness - Allergy status to other drugs, medicaments and biological substances status - Other termite renewal inspector (current) drug therapy - senior care (current) use of antibiotics - Aplastic anemia, unspecified - Syncope and collapse - Hyperlipidemia, unspecified 04/12/2018 11:31 [facility] [place] TYPE: Emergency COMPLAINT: - DIZZINESS,WEAKNESS DIAGNOSES: - Dizziness and giddiness - Aplastic anemia, unspecified - Thrombocytopenia, unspecified - Hyperlipidemia, unspecified - Allergy status to other drugs, medicaments and biological substances status - Other fpc (current) drug therapy 03/11/2018 10:08 [facility] [place] [place] TYPE: Emergency COMPLAINT: - WEAKNESS DIAGNOSES: - Contusion of left front wall of thorax, initial encounter - Allergy status to other drugs, medicaments and biological substances status - Other termite renewal inspector (current) drug therapy - Unspecified fall, initial encounter - senior care (current) use of antibiotics - Aplastic anemia, unspecified - Hyperlipidemia, unspecified - Contusion of left upper arm, initial encounter INPATIENT VISIT TRACKING (12 MO.) No inpatient visits to display in this time frame [email or web address]
[2018-07-13] MEDS ORDERED: DANAZOL100 MG PO (10:08)
[2018-07-13] MEDS ORDERED: AUGMENTIN 875-1 EACH PO (10:09)
== END 2018-07-10 00:31 | disposition home or self-care (01) ==
LOC: ED 20:16
DX: D61.9 Aplastic anemia, unspecified (principal); D72.819 Decreased white blood cell count, unspecified; E78.5 Hyperlipidemia, unspecified; Z88.8 Allergy status to other drugs, medicaments and biological substances; Z79.899 Other long term (current) drug therapy
CPT/HCPCS: 80053; 81001; 83605; 85025; 99283

== ENCOUNTER 2018-07-13 18:40 | Emergency (ER) | payer MEDICARE, OTHER ==
[~2018-07-13] VITALS: Ht 152.4 cm; Wt 49.0 kg
--- OUTSIDE RECORDS SUMMARY | ~2018-07-13 | XMS | Encounter Summary ---
Demographics + + + | Address | [address] | | | [place] [address] | + + + | Home Phone | | + + + | Preferred Language | Unknown | + + + | Marital Status | | + + + | Pentecostal Affiliation | Unknown | + + + | Race | White | + + + | Ethnic Group | Not or | + + + Author + + + | Author | [facility] | + + + | Organization | [facility] | + + + | Address | Unknown | + + + | Phone | Unavailable | + + + Support + + +---------+ + | Name | Relationship | Address | Phone | + + +---------+ + | Prince Bhatia | YAIR | Unknown | | + + +---------+ + | Prince Bhatia III | ECON | Unknown | | + + +---------+ + | Martha Bhatia | ECON | Unknown | | + + +---------+ + | June Rossi | ECON | Unknown | | + + +---------+ + | Lexi Curry | ECON | Unknown | | + + +---------+ + Care Team Providers + +------+ + | Care Improvement Rn Name | Role | Phone | + +------+ + | Reginaldo Briggs MD | PCP | | + +------+ + Reason for Visit + + + | Reason | Comments | + + + | Treatment Questions | update on starting Danazol and NPlate, ?Procrit or Aranesp | + + + Encounter Details +--------+ + + + + | Date | Type | Department | Care Team | Description | +--------+ + + + + | 06/15/ | MyChart | Center for | Cari Fuentes MD | checking in | | 2018 | Encounter | Hematologic | [address] | | | | | Malignancies at | [address] [place], | | | | | [place] | [place] [address] | | | | | [address] | [phone] | | | | | [facility] | | | | | | Mailcode: [id number] | | | | | | [place] | | | | | | [place], [place] | | | | | | [address] | | | | | | [phone] | | | +--------+ + + + + Social History + +-------+ +--------+------+ | Tobacco Use | Types | Packs/Day | Years | Date | | | | | Used | | + +-------+ +--------+------+ | Former Smoker | | | | | + +-------+ +--------+------+ + +---+---+---+ | Smokeless Tobacco: | | | | | Never Used | | | | + +---+---+---+ + + +---------+ + | Alcohol Use | Drinks/We | oz/Week | Comments | | | ek | | | + + +---------+ + | Yes | | | | + + +---------+ + + + + | Sex Assigned at | Date Recorded | | | | + + + | Not on file | | + + + as of this encounter Plan of Treatment +--------+ + + + + | Date | Type | Specialty | Care Team | Description | +--------+ + + + + | 07/26/ | Diagnostic | Hematology | | | | 2018 | Visit | Malignancy | | | +--------+ + + + + | 07/26/ | Office | Hematology | Cari Fuentes MD | | | 2018 | Visit | Malignancy | [address] | | | | | | [place], | | | | | | [place] [address] | | | | | | [phone] | | | | | | | | +--------+ + + + + as of this encounter Visit Diagnoses Not on filein this encounter"
--- OUTSIDE RECORDS SUMMARY | ~2018-07-13 | XMS | Encounter Summary ---
Demographics + + + | Address | [address] | | | [place] [address] | + + + | Home Phone | | + + + | Preferred Language | Unknown | + + + | Marital Status | | + + + | Orthodoxy Affiliation | Unknown | + + + | Race | White | + + + | Ethnic Group | Not or | + + + Author + + + | Author | [facility] | + + + | Organization | [facility] | + + + | [...] Team Providers + +------+ + | Care Weaving Machine Operator Name | Role | Phone | + +------+ + | Reginaldo Briggs MD | PCP | | + +------+ + Reason for Visit + + + | Reason | Comments | + + + | Venipuncture for | | | blood test | | + + + Encounter Details +--------+ + + + + | Date | Type | Department | Care Team | Description | +--------+ + + + + | 05/17/ | Diagnostic | Center for | | Venipuncture for | | 2018 | Visit | Hematologic | | blood test | | | | Malignancies at | | | | | | [place] | | | | | | [address] | | | | | | [facility] | | | | | | Mailcode: [id number] | | | | | | [place] Guerra | | | | | | [place], [place] | | | | | | [address] | | | | | | [phone] | | | +--------+ + + + [...] + + + as of this encounter Progress Notes Misty HenrryORA - 05/17/2018 2:00 PM PDTVenipuncture performed in clinic. Sample obtain ed from left AC. Patient tolerated the procedure well. in this encounter Plan of Treatment +--------+ + + + + | Date | Type | Specialty | Care Team | Description | +--------+ + + + + | 07/26/ | Diagnostic | Hematology | | | | 2017 | Visit | Malignancy | | | +--------+ + + + + | 07/26/ | Office | Hematology | Cari Fuentes MD | | | 2017 | Visit | Malignancy | [address] | | | | | | [place], | | | | | | [place] [address] | | | | | | [phone] | | | | | | | | +--------+ + + + + as of this encounter Procedures + +--------+ + + + | Procedure Name | Priori | Date/Time | Associated Diagnosis | Comments | | | ty | | | | + +--------+ + + + | CMP, POC (BMP+LFT) | Routin | 05/17/2018 | Aplastic anemia, | Results for this | | | e | 2:13 PM | idiopathic, acquired | procedure are in the | | | | PDT | (HCC) | results section. | + +--------+ + + + | CBC+DIFF,POC | Routin | 05/17/2018 | Aplastic anemia, | Results for this | | | e | 2:12 PM | idiopathic, acquired | procedure are in the | | | | PDT | (HCC) | results section. | + +--------+ + + + | ERYTHROPOIETIN, | Routin | 05/17/2018 | Aplastic anemia, | Results for this | | SERUM | e | 1:49 PM | idiopathic, acquired | procedure are in the | | | | PDT | ([facility]) | results section. | + +--------+ + + + | LDH TOTAL, PLASMA | Routin | 05/17/2018 | Aplastic anemia, | Results for this | | | e | 1:49 PM | idiopathic, acquired | procedure are in the | | | | PDT | ([facility]) | results section. | + +--------+ + + + in this encounter Results CMP, POC (BMP+LFT) (05/17/2018 2:13 PM) + +---------+ + + | Component | Value | Ref Range | Performed At | + +---------+ + + | SODIUM, POC | 139 | 134 - 143 mmol/L | [facility] | | | | | [place], POINT OF | | | | | CARE TESTS | + +---------+ + + | POTASSIUM, POC | 4.2 | 3.4 - 5.0 mmol/L | [facility] | | | | | [place], POINT OF | | | | | CARE TESTS | + +---------+ + + | TOTAL CO2, POC | 26 | 22 - 29 mmol/L | [facility] | | | | | [place], POINT OF | | | | | CARE TESTS | + +---------+ + + | CHLORIDE, POC | 107 | 97 - 108 mmol/L | [facility] | | | | | [place], POINT OF | | | | | CARE TESTS | + +---------+ + + | GLUCOSE, POC | 136 (H) | 70 - 99 mg/dL | [facility] | | | | | [place], POINT OF | | | | | CARE TESTS | + +---------+ + + | CALCIUM TOTAL, POC | 9.5 | 8.6 - 10.2 mg/dL | [facility] | | | | | [place], POINT OF | | | | | CARE TESTS | + +---------+ + + | BUN, POC | 29 (H) | 6 - 20 mg/dL | [facility] | | | | | [place] POINT OF | | | | | CARE TESTS | + +---------+ + + | CREATININE, POC | 1.5 (H) | 0.6 - 1.1 mg/dL | [facility] | | | | | [place] POINT OF | | | | | CARE TESTS | + +---------+ + + | ALK PHOS, CMP POC | 45 | 41 - 109 U/L | [facility] | | | | | [place], POINT OF | | | | | CARE TESTS | + +---------+ + + | ALT, CMP POC | <20 | 0 - 60 U/L | [facility] | | | | | [place], POINT OF | | | | | CARE TESTS | + +---------+ + + | AST, CMP POC | 24 | 0 - 41 U/L | [facility] | | | | | [place], POINT OF | | | | | CARE TESTS | + +---------+ + + | BILIRUBIN TOTAL, CMP | 2.0 (H) | 0.3 - 1.2 mg/dL | [facility] | | POC | | | [place], POINT OF | | | | | CARE TESTS | + +---------+ + + | ALBUMIN, CMP POC | 3.3 (L) | 3.5 - 4.7 g/dL | [facility] | | | | | [place], POINT OF | | | | | CARE TESTS | + +---------+ + + | PROTEIN TOTAL, CMP | 6.7 | 6.1 - 7.9 g/dL | [facility] | | POC | | | JENNY BAG[place] OF | | | | | CARE TESTS | + +---------+ + + + + | Specimen | + + | Blood | + + + + + + + | Performing | Address | City/State/Zipcode | Phone Number | | Organization | | | | + + + + + | [facility] | [address] | [place], [place] | | | [place] POINT OF CARE | [facility] | [address] | | | TESTS | | | | + + + + + CBC+DIFF,POC (05/17/2018 2:12 PM) + + + + + | Component | Value | Ref Range | Performed At | + + + + + | WBC POC | 1.4 (L) | 3.5 - 10.8 10*3/uL | [facility] | | | | | [place], POINT OF | | | | | CARE TESTS | + + + + + | RBC POC | 3.32 (L) | 4.00 - 5.20 10*6/uL | [facility] | | | | | [place] POINT OF | | | | | CARE TESTS | + + + + + | HGB POC | 10.2 (L) | 12.0 - 16.0 g/dL | [facility] | | | | | [place] POINT OF | | | | | CARE TESTS | + + + + + | HCT POC | 29.0 (L) | 36.0 - 46.0 % | [facility] | | | | | [place], POINT OF | | | | | CARE TESTS | + + + + + | MCV POC | 87.3 | 80.0 - 100 fL | [facility] | | | | | [place], POINT OF | | | | | CARE TESTS | + + + + + | MCH POC | 30.7 | 27.0 - 34.0 pg | [facility] | | | | | [place], POINT OF | | | | | CARE TESTS | + + + + + | MCHC POC | 35.2 | 32.0 - 36.0 g/dL | [facility] | | | | | [place], POINT OF | | | | | CARE TESTS | + + + + + | RDW SD, POC | 44.5 | 35.1 - 46.3 fL | [facility] | | | | | [place], POINT OF | | | | | CARE TESTS | + + + + + | PLT POC | 8 (AA) | 150 - 400 10*3/uL | [facility] | | | | | [place], POINT OF | | | | | CARE TESTS | + + + + + | MPV POC | 11.8 | 9.7 - 12.3 fL | [facility] | | | | | [place] POINT OF | | | | | CARE TESTS | + + + + + | NEUTROPHIL% POC | 5.7 (L) | 50.0 - 70.0 % | [facility] | | | | | [place] POINT OF | | | | | CARE TESTS | + + + + + | LYMPH% POC | 91.4 (H) | 18 - 42 % | [facility] | | | | | [place] POINT OF | | | | | CARE TESTS | + + + + + | MONO %, POC | 2.9 (L) | 3.5 - 9.0 % | [facility] | | | | | [place], POINT OF | | | | | CARE TESTS | + + + + + | EOS %, POC | 0.0 (L) | 1.0 - 3.0 % | [facility] | | | | | [place], POINT OF | | | | | CARE TESTS | + + + + + | BASO %, POC | 0.0 | 0.0 - 2.0 % | [facility] | | | | | [place], POINT OF | | | | | CARE TESTS | + + + + + | NEUTROPHIL# POC | 0.1 (L) | 1.8 - 7.7 10*3/uL | [facility] | | | | | [place], POINT OF | | | | | CARE TESTS | + + + + + | LYMPH# POC | 1.3 | 1.0 - 4.8 10*3/uL | [facility] | | | | | [place], POINT OF | | | | | CARE TESTS | + + + + + | MONO #, POC | 0.0 (L) | 0.1 - 0.9 10*3/uL | [facility] | | | | | [place], POINT OF | | | | | CARE TESTS | + + + + + | EOS #, POC | 0.0 | 0.0 - 0.5 10*3/uL | [facility] | | | | | [place], POINT OF | | | | | CARE TESTS | + + + + + | BASO #, POC | 0.0 | 0.0 - 0.1 10*3/uL | [facility] | | | | | [place], POINT OF | | | | | CARE TESTS | + + + + + | CBC COMMENT, POC | Reveiwed. | | [facility] | | | | | [place], POINT OF | | | | | CARE TESTS | + + + + + + + | Specimen | + + | Blood - Blood | + + + + + + + | Performing | Address | City/State/Zipcode | Phone Number | | Organization | | | | + + + + + | [facility] | [address] | [place], [place] | | | [facility] POINT OF CARE | [address] | [address] | | | TESTS | | | | + + + + + ERYTHROPOIETIN, SERUM (05/17/2018 1:49 PM) + + + + + | Component | Value | Ref Range | Performed At | + + + + + | ERYTHROPOIETIN, | 60 (H)Comment: | 4 - 27 mU/mL | [facility] | | SERUM | INTERPRETIVE | | UN[facility] P[facility] - | | | INFORMATION: | | [facility]FC | | | ErythropoietinNormal | | | | | serum concentrations of | | | | | erythropoietin for 95% | | | | | of individuals with | | | | | normal hematocrits range | | | | | from 4-27 mU/mL. As the | | | | | hematocrit is lowered | | | | | by iron deficiency, | | | | | aplastic, or hemolytic | | | | | anemia, the | | | | | concentration of | | | | | erythropoietin increases | | | | | as shown in the graph | | | | | below. In the absence of | | | | | anemia, elevated | | | | | concentrations are seen | | | | | in renal tumors, as a | | | | | manifestation of renal | | | | | transplant rejection, | | | | | and in secondary | | | | | polycythemia. Low values | | | | | may be observed in | | | | | hemochromatosis. | | | | | Expected | | | | | Erythropoietin | | | | | Concentrations in | | | | | Patients | | | | | | | | | | with Uncomplicated | | | | | Anemia | | | | | Erythropoietin | | | | | (mU/mL) | | | | | 100,000 - | | | | | + | | | | | | | | | | + | | | | | 10,000 - | | | | | +....... | | | | | | | | | | + | | | | | ....... | | | | | 1,000 - | | | | | + ....... | | | | | | | | | | + | | | | | | | | | | ........ | | | | | 100 | | | | | - + | | | | | ........ | | | | | | | | | | + | | | | | ........ | | | | | 10 | | | | | - | | | | | + ... | | | | | ..... | | | | | | | | | | +---+---+---+---+-- | | | | | -+---+ | | | | | | | | | | 10 | | | | | 20 30 40 50 | | | | | 60 70 | | | | | | | | | | (Hem | | | | | atocrit %) | | | | | (Con | | | | | tributions To Nephrology | | | | | 1987:66:54-62) | | | | | Decreased erythropoietin | | | | | concentrations with an | | | | | elevated hematocrit are | | | | | observed in patients | | | | | with polycythemia rubra | | | | | vera, and with a | | | | | decreased hematocrit in | | | | | patients with HIV | | | | | infection who are | | | | | receiving | | | | | AZT. Patients on AZT | | | | | who have anemia and | | | | | erythropoietin | | | | | concentrations of less | | | | | than or equal to 500 | | | | | mU/mL may benefit from | | | | | therapy with recombinant | | | | | EPO (NEJM | | | | | [phone],1989).Perf | | | | | ormed by [facility] | | | | | [facility],[address] | | | | | [place], [facility] [place] [address] | | | | | [phone]. | | | | | Sebastian wilkerson MD, | | | | | Lab. Director | | | + + + + + + + | Specimen | + + | Blood - Blood | + + + + + + + | Performing | Address | City/State/Zipcode | Phone Number | | Organization | | | | + + + + + | [facility] | [address] | [place], [place] | | | [facility] | | [id number] | | + + + + + LDH TOTAL, PLASMA (05/17/2018 1:49 PM) + +---------+ + + | Component | Value | Ref Range | Performed At | + +---------+ + + | LD TOTAL, PLASMA | 191 | <=250 U/L | [facility] | | | | | SERVICES, CORE | + +---------+ + + | LD CMNT | No Hemo | | [facility] | | | | | SERVICES, CORE | + +---------+ + + + + | Specimen | + + | Blood | + + + + + + + | Performing | Address | City/State/Zipcode | Phone Number | | Organization | | | | + + + + + | [facility] | [address] | [place] [address] | | | SERVICES, CORE | [address] | | | + + + + + in this encounter Visit Diagnoses + + | Diagnosis | + + | Aplastic anemia, idiopathic, acquired (HCC) | + + | Other specified aplastic anemias | + +"
--- OUTSIDE RECORDS SUMMARY | ~2018-07-13 | XMS | Encounter Summary ---
Demographics + + + | Address | [address] | | | [place] [address] | + + + | Home Phone | | + + + | Preferred Language | Unknown | + + + | Marital Status | | + + + | Baptism Affiliation | Unknown | + + + | Race | White | + + + | Ethnic Group | Not or | + + + Author + + + | Author | [facility] | + + + | Organization | [facility] | + + + | Address | [...] Team Providers + +------+ + | Care Keeler Polygraph Operator Name | Role | Phone | [...] | | Malignancies at | [address] [place], | ([facility]) (Primary Dx) | | | | Forrest Guerra | [place] [address] | | | | | [address] | [phone] | | | | | [address] | | | | | | Mailcode: [id number] | | | | | | Forrest Guerra | | | | | | [place], [place] | | | | | | [address] | | | | | | [phone] | | | +--------+---------+ + + + [...] three times daily... Prescription sent to local [facility] with [address] Gamboa should [...] Dr. Gamboa Visit with Dr. Fuentes or BOOK BINDER/PA: 2 months (July) PLEASE REMEMBER I HAVE A TEAM OF LEATHER SPLITTER TO HELP ME TAKE CARE OF YOU. [...] QUESTIONS: Please call the Triage Nurse at [phone] or [phone] (Monday - Monday 8:30-4:30). During after hours, holiday s, and weekends, please call [phone] and ask to have the BMT Person production supv paged. FOR PRESCRIPTIONS: Please allow >72 hours [...] ED and received hydration. Admitted [facility] two nights for this episode. Today: [...] BMBx Final Pathologic Diagnosis Peripheral blood, smear ([facility], MB-18-23, 01/26/2018): - Leukopenia with absolute neutropenia and absolute monocytopenia. - Normocytic normochromic anemia. - Thrombocytopenia. 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 Ms. Bhatia's transfusion requirements are the same/somewhat [...] | | | | | [address] [place], | | | | | | [place] [address] | | | | | | [phone] | | | | | | | | +--------+ + + + + as of this encounter Results CMP, POC (BMP+LFT) (05/17/2018 2:13 PM) + +---------+ + + | Component | Value | Ref Range | Performed At | + +---------+ + + | SODIUM, POC | 139 | 134 - 143 mmol/L | [facility] | | | | | [place] OF | | | | | CARE TESTS | + +---------+ + + | POTASSIUM, POC | 4.2 | 3.4 - 5.0 mmol/L | [facility] | | | | | [place], POINT [...] 0 - 41 U/L | [facility] | | | | | [place], POINT OF | | | | | CARE TESTS | + +---------+ + + | BILIRUBIN TOTAL, CMP | 2.0 (H) | 0.3 - 1.2 mg/dL | [facility] | | POC | | | [place], POINT OF | | | | | CARE TESTS | + +---------+ + + | ALBUMIN, CMP POC | 3.3 (L) | 3.5 - 4.7 g/dL | [facility] | | | | | [place], POINT OF | | | | | CARE TESTS | + +---------+ + + | PROTEIN TOTAL, CMP | 6.7 | 6.1 - 7.9 g/dL | [facility] | | POC | | | [place], [...] | [address] | [place], [place] | | | [place] POINT OF CARE | [address] | [address] | | | TESTS | | | | + + + + + CBC+DIFF,POC (05/17/2018 2:12 PM) + + + + + | Component | Value | Ref Range | Performed At | + + + + + | WBC POC | 1.4 (L) | 3.5 - 10.8 10*3/uL | [facility] | | | | | [place], POINT OF | | | | | CARE TESTS | + + + + + | RBC POC | 3.32 (L) | 4.00 - 5.20 10*6/uL | [facility] | | | | | [place], POINT OF | | | | | CARE TESTS | + + + + + | HGB POC | 10.2 (L) | 12.0 - 16.0 g/dL | [facility] | | | | | [place], POINT OF | | | | | CARE TESTS | + + + + + | HCT POC | 29.0 (L) | 36.0 - 46.0 % | [facility] | | | | | [place], POINT OF | | | | | CARE TESTS | + + + + + | MCV POC | 87.3 | 80.0 - 100 fL | [facility] | | | | | [place], POINT OF | | | | | CARE TESTS | + + + + + | MCH POC | 30.7 | 27.0 - 34.0 pg | [facility] | | | | | [place] POINT OF | | | | | CARE TESTS | + + + + + | MCHC POC | 35.2 | 32.0 - 36.0 g/dL | [facility] | | | | | [place] POINT OF | | | | | CARE TESTS | + + + + + | RDW SD, POC | 44.5 | 35.1 - 46.3 fL | [facility] | | | | | [place] POINT OF | | | | | CARE TESTS | + + + + + | PLT POC | 8 (AA) | 150 - 400 10*3/uL | [facility] | | | | | [place] POINT OF | | | | | CARE TESTS | + + + + + | MPV POC | 11.8 | 9.7 - 12.3 fL | [facility] | | | | | [place], POINT OF | | | | | CARE TESTS | + + + + + | NEUTROPHIL% POC | 5.7 (L) | 50.0 - 70.0 % | [facility] | | | | | [place], POINT OF | | | | | CARE TESTS | + + + + + | LYMPH% POC | 91.4 (H) | 18 - 42 % | [facility] | | | | | [place], POINT OF | | | | | CARE TESTS | + + + + + | MONO %, POC | 2.9 (L) | 3.5 - 9.0 % | [facility] | | | | | [place], POINT OF | | | | | CARE TESTS | + + + + + | EOS %, POC | 0.0 (L) | 1.0 - 3.0 % | [facility] | | | | | [place], POINT OF | | | | | CARE TESTS | + + + + + | BASO %, POC | 0.0 | 0.0 - 2.0 % | [facility] | | | | | [place], POINT OF | | | | | CARE TESTS | + + + + + | NEUTROPHIL# POC | 0.1 (L) | 1.8 - 7.7 10*3/uL | [facility] | | | | | [place], POINT OF | | | | | CARE TESTS | + + + + + | LYMPH# POC | 1.3 | 1.0 - 4.8 10*3/uL | [facility] | | [...] 0.0 | 0.0 - 0.5 10*3/uL | [facility] | | | | | [place], POINT OF | | | | | CARE TESTS | + + + + + | BASO #, POC | 0.0 | 0.0 - 0.1 10*3/uL | [facility] | | | | | [place] POINT OF | | | | | CARE TESTS | + + + + + | CBC COMMENT, POC | Reveiwed. | | [facility] | | | | [...] | [address] | [place], [place] | | | [place] POINT OF CARE | [address] | [address] | | | TESTS | | | [...] recombinant | | | | | EPO ([facility] | | | | | [phone],1989).Perf | | | | | ormed by [facility] | | | | | [facility],[address] | | | | | [place] [address] | | | | | [phone]. | | | | | Sebastian wilkerson [...] | + + + + + | [facility] | [address] | [place], [place] | | | [facility] | | [address] | | + + + + + LDH TOTAL, PLASMA (05/17/2018 1:49 PM) + +---------+ + + | Component | Value | Ref Range | Performed At | + +---------+ + + | LD TOTAL, PLASMA | 191 | <=250 U/L | [facility] | | | | | SERVICES, CORE | + +---------+ + + | RIKI CMNT | No Hemo | | [facility] | | | | | [place] | + +---------+ + + + + | Specimen | + + | Blood | + + + + + + + | Performing | Address | City/State/Zipcode | Phone Number | | Organization | | | | + + + + + | [facility] | [address] | [place] [address] | | | [place] | [address] | | | + + + + + in this encounter Visit Diagnoses + + | Diagnosis | + + | Aplastic anemia, idiopathic, acquired (HCC) - Primary | + + | Other specified aplastic anemias | + +"
--- OUTSIDE RECORDS SUMMARY | ~2018-07-13 | XMS | Clinical Summary ---
Demographics + + + | Address | [address] | | | [place] [address] | + + + | Home Phone | | + + + | Preferred Language | Unknown | + + + | Marital Status | | + + + | Gnosticist Affiliation | Unknown | + + + | Race | White | + + + | Ethnic Group | Not or | + + + Author + + + | Author | [facility] | + + + | Organization | [facility] | + + + | Address | Unknown | + + + | Phone | Unavailable | + + + Support + + +---------+ + | Name | Relationship | Address | Phone | + + +---------+ + | Prince Bhatia | ECON | Unknown | | + + +---------+ + | Prince hBatia III | ECON | Unknown | | + + +---------+ + | SriramMartha | ECON | Unknown | | + + +---------+ + | June Rossi | ECON | Unknown | | + + +---------+ + | Lexi Curry | ECON | Unknown | | + + +---------+ + Care Team Providers + +------+ + | Care City Surveyor Name | Role | Phone | + +------+ + | Reginaldo Briggs MD | PP | | + +------+ + Source Comments [facility] is fully live on both EpicCare Ambulatory and EpicCare InPatient.[facility] Allergies + + + + + + | Active Allergy | Reactions | Severity | Noted | Comments | | | | | Date | | + + + + + + | Atorvastatin | Myalgia | | 04 | | | | | | 18 | | + + + + + + | Simvastatin | Myalgia | | 01/18/20 | | | | | | 18 | | + + + + + + Current Medications + + +---------+---------+------+------+-------+ | Prescription | Sig. | Disp. | Refills | Star | End | Statu | | | | | | t | Date | s | | | | | | Date | | | + + +---------+---------+------+------+-------+ | traZODone 50 mg | Take 50 mg by mouth | | | | | Activ | | oral tablet | once daily at | | | | | e | | | bedtime. | | | | | | + + +---------+---------+------+------+-------+ | danazol 100 mg | Take 1 capsule by | 90 | 1 | 08/0 | | Activ | | oral capsule | mouth three times | capsule | | 2/20 | | e | | | daily. | | | 18 | | | + + +---------+---------+------+------+-------+ | cycloSPORINE 25 mg | | | | 07/1 | | Activ | | oral capsule | | | | 5/20 | | e | | | | | | 18 | | | + + +---------+---------+------+------+-------+ | cycloSPORINE 100 | | | | 06/0 | | Activ | | mg oral capsule | | | | 8/20 | | e | | | | | | 18 | | | + + +---------+---------+------+------+-------+ | PROMACTA 75 mg | | | | 07/1 | | Activ | | oral tablet | | | | 3/20 | | e | | | | | | 18 | | | + + +---------+---------+------+------+-------+ | fluconazole 200 mg | | | | 07/0 | | Activ | | oral tablet | | | | 6/20 | | e | | | | | | 18 | | | + + +---------+---------+------+------+-------+ | levoFLOXacin 750 | | | | 07/0 | | Activ | | mg oral tablet | | | | 6/20 | | e | | | | | | 18 | | | + + +---------+---------+------+------+-------+ | midodrine 5 mg | | | | 07/3 | | Activ | | oral tablet | | | | 1/20 | | e | | | | | | 18 | | | + + +---------+---------+------+------+-------+ | valACYclovir 500 | | | | 07/0 | | Activ | | mg oral tablet | | | | 6/20 | | e | | | | | | 18 | | | + + +---------+---------+------+------+-------+ Active Problems + + + | Problem | Noted Date | + + + | Aplastic anemia, idiopathic, acquired (HCC) | 02/15/2018 | + + + Encounters +--------+ + + + + | Date | Type | Specialty | Care Team | Description | +--------+ + + + + | 06/15/ | MyChart | | Cari Fuentes MD | checking in | | 2017 | Encounter | | | | +--------+ + + + + | 05/17/ | Hospital | | | | | 2017 | Encounter | | | | +--------+ + + + + | 05/17/ | Office | | Cari Fuentes MD | Aplastic anemia, | | 2018 | Visit | | | idiopathic, acquired | | | | | | (HCC) (Primary Dx) | +--------+ + + + + | 05/17/ | Diagnostic | | | Venipuncture for | | 2017 | Visit | | | blood test | +--------+ + + + + | 05/07/ | Telephone | | Radha Sainz | Appointment Question | | 2018 | | | RENNY Akbar | | +--------+ + + + + | 05/03/ | Telephone | | Cari Fuentes MD | Lack of appetite | | 2017 | | | | ("feeling full"); | | | | | | Weight loss (down 20 | | | | | | lbs since january); | | | | | | Lab findings, | | | | | | teaching, guidance, | | | | | | and counseling | | | | | | (asking for Iron | | | | | | overload testing and | | | | | | MRI of the liver?); | | | | | | Referral | | | | | | (requesting | | | | | | nutrition consult); | | | | | | Dizziness (ER visits | | | | | | ); Passing Out | +--------+ + + + + from Last 3 Months Social History + +-------+ +--------+------+ | Tobacco [...] on file | | + + + Last Filed Vital Signs + + + + | Vital Sign | Reading | Time Taken | + + + + | Blood Pressure | 140/70 | 05/17/2018 7:15 PM PDT | + + + + | Pulse | 68 | 05/17/2018 7:15 PM PDT | + + + + | Temperature | 37 C (98.6 F) | 05/17/2018 4:57 PM PDT | + + + + | Respiratory Rate | 16 | 05/17/2018 7:15 PM PDT | + + + + | Oxygen Saturation | 99% | 05/17/2018 4:57 PM PDT | + + + + | Inhaled Oxygen | - | - | | Concentration | | | + + + + | Weight | 50.1 kg (110 lb 6.4 | 05/17/2018 4:57 PM PDT | | | oz) | | + + + + | Height | 156.5 cm (5' 1.61") | 02/15/2018 2:21 PM PDT | + + + + | Body Mass Index | 20.45 | 05/17/2018 4:57 PM PDT | + + + + Plan of Treatment +--------+ + + + + | Date | Type | Specialty | Care Team | Description | +--------+ + + + + | 07/26/ | Diagnostic | | | | | 2017 | Visit | | | | +--------+ + + + + | 07/26/ | Office | | Cari Fuentes MD | | | 2017 | Visit | | [address] | | | | | | [place], | | | | | | [place] [address] | | | | | | [phone] | | | | | | | | +--------+ + + + + + + + + + | Health Maintenance | Due Date | Last Done | Comments | + + + + + | Pneumococcal (Adult) | | | | | (1 of 2 - PCV13) | 1 | | | + + + + + | INFLUENZA VACCINE | | | | | (FLU SHOT) | 8 | | | + + + + + Procedures + +--------+ + + + | Procedure Name | Priori | Date/Time | Associated Diagnosis | Comments | | | ty | | | | + +--------+ + + + | CONFIRMATORY ABO/RH | Routin | 05/17/2018 | Aplastic anemia | Results for this | | | e | 3:49 PM | (HCC) | procedure are in the | | | | PDT | | results section. | + +--------+ + + + | ANTIBODY SCREEN | Urgent | 05/17/2018 | Aplastic anemia | Results for this | | | | 3:49 PM | (HCC) | procedure are in the | | | | PDT | | results section. | + +--------+ + + + | ABO & RH TYPE | Urgent | 05/17/2018 | Aplastic anemia | Results for this | | | | 3:49 PM | (HCC) | procedure are in the | | | | PDT | | results section. | + +--------+ + + + | TYPE AND SCREEN | Urgent | 05/17/2018 | Aplastic anemia | Results for this | | | | 3:49 PM | (HCC) | procedure are in the | | | | PDT | | results section. | + +--------+ + + + | PRODUCT - PLATELET | Routin | 05/17/2018 | Aplastic anemia | Results for this | | PHERESIS | e | 3:41 PM | (HCC) | procedure are in the | | LEUKOREDUCED | | PDT | | results section. | + +--------+ + + + | CMP, POC (BMP+LFT) | Routin | 05/17/2018 | Aplastic anemia, | Results for this | | | e | 2:13 PM | idiopathic, acquired | procedure are in the | | | | PDT | ([facility]) | results section. | + +--------+ + + + | CBC+DIFF,POC | Routin | 05/17/2018 | Aplastic anemia, | Results for this | | | e | 2:12 PM | idiopathic, acquired | procedure are in the | | | | PDT | ([facility]) | results section. | + +--------+ + + + | ERYTHROPOIETIN, | Routin | 05/17/2018 | Aplastic anemia, | Results for this | | SERUM | e | 1:49 PM | idiopathic, acquired | procedure are in the | | | | PDT | ([facility]) | results section. | + +--------+ + + + | LDH TOTAL, PLASMA | Routin | 05/17/2018 | Aplastic anemia, | Results for this | | | e | 1:49 PM | idiopathic, acquired | procedure are in the | | | | PDT | ([facility]) | results section. | + +--------+ + + + from Last 3 Months Results CONFIRMATORY ABO/RH (05/17/2018 3:49 PM) + + + + + | Component | Value | Ref Range | Performed At | + + + + + | ABO Group | B | | [facility] | | | | | SERVICES, | | | | | TRANSFUSION | | | | | MEDICINE | + + + + + | Rh Type | Positive | | [facility] | | | | | SERVICES, | | | | | TRANSFUSION | | | | | MEDICINE | + + + + + + + | Specimen | + + | Blood - Blood | + + + + + + + | Performing | Address | City/State/Zipcode | Phone Number | | Organization | | | | + + + + + | [facility] | [address] | [place] [address] | | | SERVICES, | [address] | | | | TRANSFUSION MEDICINE | | | | + + + + + ANTIBODY SCREEN (05/17/2018 3:49 PM) + + + + + | Component | Value | Ref Range | Performed At | + + + + + | Antibody Screen | Negative | | [facility] | | | | | SERVICES, | | | | | TRANSFUSION | | | | | MEDICINE | + + + + + + + | Specimen | + + | Blood - Blood | + + + + + + + | Performing | Address | City/State/Zipcode | Phone Number | | Organization | | | | + + + + + | [facility] | [address] | [place] [address] | | | SERVICES, | [address] | | | | TRANSFUSION MEDICINE | | | | + + + + + ABO & RH TYPE (05/17/2018 3:49 PM) + + + + + | Component | Value | Ref Range | Performed At | + + + + + | ABO Group | B | | [facility] | | | | | SERVICES, | | | | | TRANSFUSION | | | | | MEDICINE | + + + + + | Rh Type | Positive | | [facility] | | | | | SERVICES, | | | | | TRANSFUSION | | | | | MEDICINE | + + + + + + + | Specimen | + + | Blood - Blood | + + + + + + + | Performing | Address | City/State/Zipcode | Phone Number | | Organization | | | | + + + + + | [facility] | [address] | [place] [address] | | | SERVICES, | [address] | | | | TRANSFUSION MEDICINE | | | | + + + + + PRODUCT - PLATELET PHERESIS LEUKOREDUCED (05/17/2018 3:41 PM) + + + + + | Component | Value | Ref Range | Performed At | + + + + + | PRODUCT DESCRIPTION | PLATELETS PHERESIS, | | [facility] | | | LEUKOCYTE REDUCED, | | SERVICES, | | | IRRADIATED | | TRANSFUSION | | | | | MEDICINE | + + + + + | PRODUCT UNIT # | [id number] | | [facility] | | | | | SERVICES, | | | | | TRANSFUSION | | | | | MEDICINE | + + + + + | UNIT ABO | O | | [facility] | | | | | SERVICES, | | | | | TRANSFUSION | | | | | MEDICINE | + + + + + | UNIT RH | POS | | [facility] | | | | | SERVICES, | | | | | TRANSFUSION | | | | | MEDICINE | + + + + + | STATUS OF UNIT | Presumed Transfused | | [facility] | | | | | SERVICES, | | | | | TRANSFUSION | | | | | MEDICINE | + + + + + | EXPIRATION DATE | [id number] | | [facility] | | | | | SERVICES, | | | | | TRANSFUSION | | | | | MEDICINE | + + + + + | BLOOD TYPE BARCODE | 5100 | | [facility] | | | | | SERVICES, | | | | | TRANSFUSION | | | | | MEDICINE | + + + + + | BLOOD PRODUCT CODE | [id number] | | [facility] | | | | | SERVICES, | | | | | TRANSFUSION | | | | | MEDICINE | + + + + + + + + + + | Performing | Address | City/State/Zipcode | Phone Number | | Organization | | | | + + + + + | [facility] | [address] | [place] [address] | | | SERVICES, | [address] | | | | TRANSFUSION MEDICINE | | | | + + + + + CMP, POC (BMP+LFT) (05/17/2018 2:13 PM) + [...] 70 - 99 mg/dL | [facility] | | | | | [place], POINT OF | | | | | CARE TESTS | + +---------+ + + | CALCIUM TOTAL, POC | 9.5 | 8.6 - 10.2 mg/dL | [facility] | | | [...] 3.5 - 4.7 g/dL | [facility] | | | | | [place], POINT OF | | | | | CARE TESTS | + +---------+ + + | PROTEIN TOTAL, CMP | 6.7 | 6.1 - 7.9 g/dL | [facility] | | POC | | | [place] POINT OF | | | | | CARE TESTS | + +---------+ + + + + | Specimen | + + | Blood | + + + + + + + | Performing | Address | City/State/Zipcode | Phone Number | | Organization | | | | + + + + + | [facility] | [address] | [place], [place] | | | [place] POINT OF CARE | [address] | [address] | | | TESTS | | | [...] [facility] | | | | | [place] POINT OF | | | | | CARE TESTS | + + + + + | HGB POC | 10.2 (L) | 12.0 - 16.0 g/dL | [facility] | | [...] 35.1 - 46.3 fL | [facility] | | [...] 11.8 | 9.7 - 12.3 fL | [facility] | | | | | [place] POINT [...] 18 - 42 % | [facility] | | [...] 1.0 - 3.0 % | [facility] | | [...] 0.0 - 0.5 10*3/uL | [facility] | | | | | [place], POINT OF | | | | | CARE TESTS | + + + + + | BASO #, POC | 0.0 | 0.0 - 0.1 10*3/uL | [facility] | | | | | JENNY [facility]AGLEY [...] + + + + | [facility] | [address] | [place], [place] | | | [place] POINT OF CARE | [facility] | [address] | | | TESTS | | | [...] To Nephrology | | | | | 1988:66:54-62) | | | | | Decreased erythropoietin [...] recombinant | | | | | EPO ([facility] | | | | | [id number],1989).Perf | | | | | ormed by [facility] | | | | | [facility],[address] | | | | | [place], [place] [address] | | | | | [phone]. | | | | | [facility], Sebastian Johnson MD, | | | | | Lab. [...] [facility] | [address] | [place], [place] | | | [facility] | | [address] | | + + + + + LDH TOTAL, PLASMA (05/17/2018 1:49 PM) + +---------+ + + | Component | Value | Ref Range | Performed At | + +---------+ + + | LD TOTAL, PLASMA | 191 | <=250 U/L | [facility] | | | | | SERVICES, [...] | + + + + + | [facility] | [address] | [place] [address] | | | SERVICES, CORE | [address] | | | + + + + + from Last 3 Months Insurance + +--------+ +--------+ + + | Payer | Benefi | Subscriber | Type | Phone | Address | | | t Plan | ID | | | | | | / | | | | | | | Group | | | | | + +--------+ +--------+ + + | MEDICARE | MEDICA | xxxxxxxxxx | Medica | [phone] | [address] | | | RE A & | | re | [phone] | [place] [address] | | | B | | | | | + +--------+ +--------+ + + | MODA MEDICARE | MODA | xxxxxxxxx | POS | [phone] [address] [address] | | SUPPLEMENT | MEDICA | | | [phone] | [place] [address] | | | RE | | | | | | | SUPPLE | | | | | | | MENT | | | | | + +--------+ +--------+ + + + +--------+ +--------+ + + | Guarantor Name | Accoun | Relation to | Date | Phone | Billing Address | | | t Type | Patient | of | | | | | | | | | | + +--------+ +--------+ + + | MARLYN BHATIA | Person | Self [birth year] | Home: | [address] | | | al/Fam | | 1945 | [phone] | [place] [address] | | | srinivas | | | [phone] | | + +--------+ +--------+ + +
--- OUTSIDE RECORDS SUMMARY | ~2018-07-13 | XMS | Encounter Summary ---
Demographics + + + | Address | [address] | | | [place] [address] | + + + | Home Phone | | + + + | Preferred Language | Unknown | + + + | Marital Status | | + + + | Latter Day Affiliation | Unknown | + + + | Race | White | + + + | Ethnic Group | Not or | + + + Author + + + | Author | [facility] | + + + | Organization | [facility] | + + + | Address [...] Team Providers + +------+ + | Care Medical Records Technician Name | Role | Phone | + [...] | | Malignancies at | [address] [place], | ([facility]) (Primary Dx) | | | | Forrest Guerra | [place] [address] | | | | | [address] | [phone] | | | | | [address] | | | | | | Mailcode: [id number] | | | | | | Forrest Guerra | | | | | | [place], [place] | | | | | | [address] | | | | | | [phone] | | | +--------+---------+ + + + [...] three times daily... Prescription sent to local [facility] with [address] Gamboa should [...] Dr. Gamboa Visit with Dr. Fuentes or BOARD CERTIFIED BEHAVIORAL ANALYST/PA: 2 months (July) PLEASE REMEMBER I HAVE A TEAM OF DRY CANS OPERATOR TO HELP ME TAKE CARE OF YOU. [...] call the Triage Nurse at or [phone] (Monday - Monday 8:30-4:30). During after hours, holiday s, and weekends, please call [phone] and ask to have the BMT Person chemical production engineer paged. FOR PRESCRIPTIONS: Please allow >72 hours [...] ED and received hydration. Admitted to hosp [facility] for two nights for this episode. Today: [...] BMBx Final Pathologic Diagnosis Peripheral blood, smear ([facility], MB-18-23, 01/26/2018): - Leukopenia with absolute neutropenia and absolute monocytopenia. - Normocytic normochromic anemia. - Thrombocytopenia. 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 Ms. Bhatia's transfusion requirements are the same/somewhat [...] | | | | | Nunu Silva [place], | | | | | | [place] [address] | | | | | | [phone] | | | | | | | [...] (H) | 0.3 - 1.2 mg/dL | [facility] | | POC | | | KEVYN, POINT OF | | | | | CARE TESTS | + +---------+ + + | ALBUMIN, CMP POC | 3.3 (L) | 3.5 - 4.7 g/dL | [facility] | | | | | KEV[place], POINT OF | | | | | CARE TESTS | + +---------+ + + | PROTEIN TOTAL, CMP | 6.7 | 6.1 - 7.9 g/dL | [facility] | | POC | | [...] | [address] | [place], [place] | | | KEVYN POINT OF CARE | [address] | [address] | | | TESTS | | | [...] | [address] | [place], [place] | | | KEVYN POINT OF CARE | [address] | [address] | | | TESTS | | | [...] EPO (NE | | | | | [id number],1989).Perf | | | | | ormed by [facility] | | | | | Laboratories,[address] | | | | | [place] [address] | | | | | [phone]. | | | | | Sebastian wilkerson [...] [facility] | [address] | [place], [place] | | | UNIV PTH - INTFC | | [address] | | + + + + + LDH TOTAL, PLASMA (05/17/2018 1:49 PM) + +---------+ + + | Component | Value | Ref Range | Performed At | + +---------+ + + | LD TOTAL, PLASMA | 191 | <=250 U/L | [facility] | | | | | SERVICES, [...] [facility] | [address] | [place] [address] | | | KAYLEE SALGUERO | [address] | | | + + + + + in this encounter Visit Diagnoses + + | Diagnosis | + + | Aplastic anemia, idiopathic, acquired (HCC) - Primary | + + | Other specified aplastic anemias | + +"
--- OUTSIDE RECORDS SUMMARY | ~2018-07-13 | XMS | Encounter Summary ---
Demographics + + + | Address | [address] | | | [place] [address] | + + + | Home Phone | | + + + | Preferred Language | Unknown | + + + | Marital Status | | + + + | Temple Affiliation | Unknown | + + + | Race | Unknown | + + + | Ethnic Group | Unknown | + + + Author + + + | Author | [facility] | | | and [place] | + + + | Organization | [facility] | | | and [place] | [...] Team Providers + +------+ + | Care Industrial Plant Custodian Name | Role | Phone | + +------+ + | Reginaldo Briggs MD | PCP | | + +------+ + Reason for Visit +--------+ + | Reason | Comments | +--------+ + | Other | | +--------+ + Encounter Details +--------+ + + + + | Date | Type | Department | Care Team | Description | +--------+ + + + + | 04/12/ | Telephone | [facility] | [facility], | Other | | 2018 | | [facility] | Jer Miller MD [address] | | | | | [facility] CL[facility] [address] | [address] [place] | | | | | [address] | [place] [address] | | | | | [place] [address] | [phone] | | | | | [phone] | | | +--------+ + + + [...] as of this encounter Plan of Treatment Not on fileas of this encounter Visit Diagnoses Not on filein this encounter"
--- OUTSIDE RECORDS SUMMARY | ~2018-07-13 | XMS | Encounter Summary ---
Demographics + + + | Address | [address] | | | [place] [address] | + + + | Home Phone | | + + + | Preferred Language | Unknown | + + + | Marital Status | | + + + | Jew Affiliation | Unknown | + + + [...] Team Providers + +------+ + | Care Hawk Missile System Crewmember Name | Role | Phone | + [...] 2017 | | Hematologic | Naomie RN [address] | | | | | Malignancies at | [address] | | | | | [place] Guerra | [place], [place] | | | | | [address] | [address] | | | | | [address] | [phone] | | | | | Mailcode: UHN73A | | | | | | Forrest Guerra | | | | | | [place], [place] | | | | | | [address] | | | | | | [phone] | | | +--------+ + + + [...] | | | | | Michelle Silva [place], | | | | | | [place] [address] | | | | | | [phone] | | | | | | | | +--------+ + + + + as of this encounter Visit Diagnoses Not on filein this encounter"
--- OUTSIDE RECORDS SUMMARY | ~2018-07-13 | XMS | Encounter Summary ---
Demographics + + + | Address | [address] | | | [place] [address] | + + + | Home Phone | | + + + | Preferred Language | Unknown | + + + | Marital Status | | + + + | Hinduism Affiliation | Unknown | + + + | Race | Unknown | + + + | Ethnic Group | Unknown | + + + Author + + + | Author | [facility] | | | and [place] | + + + | Organization | [facility] | | | and [place] [...] Team Providers + +------+ + | Care Curtain Hemmer Automatic Name | Role | Phone | + +------+ + | Zion Esposito MD | PCP | | + +------+ + Encounter Details +--------+ + + + + | Date | Type | Department | Care Team | Description | +--------+ + + + + | 05/04/ | Orders Only | [facility] | [facility], | Cachexia (HCC) | | 2018 | | [facility] | Jer Miller MD [address] | (Primary Dx) | | | | [facility] CLINIC [address] | [address] [place] | | | | | [address] | [place] [address] | | | | | [place] [address] | [phone] | | | | | [phone] | | | +--------+ + + + [...] on fileas of this encounter Visit Diagnoses + + | Diagnosis | + + | Cachexia (HCC) - Primary | + + | Cachexia | + +"
--- OUTSIDE RECORDS SUMMARY | ~2018-07-13 | XMS | Encounter Summary ---
Demographics + + + | Address | [address] | | | [place] [address] | + + + | Home Phone | | + + + | Preferred Language | Unknown | + + + | Marital Status | | + + + | Methodist Affiliation | Unknown | + + + | Race | White | + + + | Ethnic Group | Not or | + + + Author + + + | Author | [facility] | + + + | Organization | [facility] | + + + | Address [...] Team Providers + +------+ + | Care Emergency Department Rn Name | Role | Phone | [...] | | | | Malignancies at | [address] [place], | | | | | Forrest Guerra | [place] [address] | | | | | [address] | [phone] | | | | | [facility] | | | | | | Mailcode: [id number] | | | | | | Forrest Guerra | | | | | | [place], [place] | | | | | | [address] | | | | | | [phone] | | | +--------+ + + + [...] | | | | | Michelle Silva [place], | | | | | | [place] [address] | | | | | | [phone] | | | | | | | | +--------+ + + + + as of this encounter Visit Diagnoses Not on filein this encounter"
--- OUTSIDE RECORDS SUMMARY | ~2018-07-13 | XMS | Clinical Summary ---
Demographics + + + | Address | [address] | | | [place] [address] | + + + | Home Phone | | + + + | Preferred Language | Unknown | + + + | Marital Status | | + + + | Protestant Affiliation | Unknown | + + + | Race | Unknown | + + + | Ethnic Group | Unknown | + + + Author + + + | Author | [facility] | | | and [place] | + + + | Organization | [facility] | | | and [place] [...] Team Providers + +------+ + | Care Concrete Pointer Name | Role | Phone | + [...] Orders Only | | [facility] | Darron ([facility]) | | 2017 | | | Jer [...] + + + | Hepatitis C | Completed | 01/31/2018 | | | Screening | | | | + + + [...] + + | MEDICARE | MEDICA | [id number] | Medica | +1- | | | | RE | | re | [phone] | | | | PART A | | | | | | | AND B | | | | | + +--------+ +--------+ + + | MODA | MODA | [id number] | Indemn | [id number] | [address] [address] | | | HEALTH | | ity | [address] | [place] [address] | | | MDCR | | | [...] | Self | [birth year] Home: | [address] [address]. | | | al/Fam | | 1945 | [phone] | [place] [address] | | | srinivas | | | [phone] | | + +--------+ +--------+ + +
--- OUTSIDE RECORDS SUMMARY | ~2018-07-13 | XMS | Encounter Summary ---
Demographics + + + | Address | [address] | | | [place] [address] | + + + | Home Phone | | + + + | Preferred Language | Unknown | + + + | Marital Status | | + + + | Tenriism Affiliation | Unknown | + + + | Race | White | + + + | Ethnic Group | Not or | + + + Author + + + | Author | [facility] | + + + | Organization | [facility] | + + + | [...] Team Providers + +------+ + | Care Fitting Room Attendant Name | Role | Phone | + [...] 2017 | | Hematologic | Naomie RN [address] | | | | | Malignancies at | [address] | | | | | Forrest Guerra | [place], [place] | | | | | [address] | [address] | | | | | [address] | [phone] | | | | | Mailcode: [id number] | | | | | | Forrest Guerra | | | | | | [place], [place] | | | | | | [address] | | | | | | [phone] | | | +--------+ + + + [...] [address] | | | | | | Mcihelle Silva [place], | | | | | | [place] [address] | | | | | | [phone] | | | | | | | | +--------+ + + + + as of this encounter Visit Diagnoses Not on filein this encounter"
--- OUTSIDE RECORDS SUMMARY | ~2018-07-13 | XMS | Encounter Summary ---
Demographics + + + | Address | [address] | | | [place] [address] | + + + | Home Phone | | + + + | Preferred Language | Unknown | + + + | Marital Status | | + + + | Taoism Affiliation | Unknown | + + + | Race | White | + + + | Ethnic Group | Not or | + + + Author + + + | Author | [facility] | + + + | Organization | [facility] | + + + | Address [...] Team Providers + +------+ + | Care Steam Hammer Operator Name | Role | Phone | [...] + + | 05/17/ | Hospital | [facility] | | | | 2018 | Encounter | Hematologic | | | | | | Malignancies at [facility] | | | | | | [address] | | | | | | [facility] | | | | | | Mailcode: [id number] | | | | | | Forrest Guerra | | | | | | [place], [place] | | | | | | [address] | | | | | | [phone] | | | +--------+ + + + [...] and reminded to check out at front tender upon discharge. Ed ucated pt to contact clinic if experiencing temp greater than 100.4, chills, s/s of infectio n or bleeding, inability to swallow or keep down liquids or pills. Pt verbalized understand ing. Patient ambulated independently out of clinic with daughter, who is also uke driver. in this encounter Plan of Treatment [...] | | | | | Michelle Silva [place], | | | | | | [place] [address] | | | | | | [phone] | | | | | | | [...] | + + + + + | [facility] | [address] | [place] [address] | | | SERVICES, | [address] [...] | + + + + + | [facility] | [address] | [place] [address] | | | SERVICES, | [address] | | | | TRANSFUSION MEDICINE | | | | + + + + + ABO & RH TYPE (05/17/2018 3:49 PM) + + + + + | Component | Value | Ref Range | Performed At | + + + + + | ABO Group | B | | [facility] | | | | | SERVICES, [...] [facility] | [address] | [place] [address] | | | SERVICES, | [address] [...] + + | PRODUCT UNIT # | [id number] | | [facility] | | | [...] + + + | EXPIRATION DATE | [id number] | | [facility] | | | [...] + + | BLOOD PRODUCT CODE | [id number] | | [facility] | | | | | SERVICES, | | | | | TRANSFUSION | | | | | MEDICINE | + + + + + + + + + + | Performing | Address | City/State/Zipcode | Phone Number | | Organization | | | | + + + + + | [facility] | [address] | [place] [address] | | | SERVICES, | [address] | | | | TRANSFUSION MEDICINE | | | | + + + + + in this encounter Visit Diagnoses + + | Diagnosis | + + | Aplastic anemia (HCC) - Primary | + + | Aplastic anemia, unspecified | + +"
--- OUTSIDE RECORDS SUMMARY | ~2018-07-13 | XMS | Encounter Summary ---
Demographics + + + | Address | [address] | | | [place] [address] | + + + | Home Phone [...] + + + | Author | [facility] | + + + | Organization | [facility] | + + + | Address [...] Team Providers + +------+ + | Care Apparel Merchandiser Name | Role | Phone | + [...] [address] | | | | | | [facility] | | | | | | Mailcode: [id number] | | | | | | Forrest Guerra | | | | | | [place], [place] | | | | | | [address] | | | | | | [phone] | | | +--------+ + + + [...] | | | | | Nunu Silva [place], | | | | | | [place] [address] | | | | | | [phone] | | | | | | | [...] | [address] | [place], [place] | | | KEVYN POINT OF CARE | [facility] | [address] | | | TESTS | | | [...] | [address] | [place], [place] | | | KEVYN POINT OF CARE | [address] | [address] | | | TESTS | | | [...] EPO (NEJM | | | | | [id number],1989).Perf | | | | | ormed by [facility] | | | | | Laboratories,[address] | | | | | [place], [facility],[place] [address] | | | | | [phone].[email or web address]. | | | | | Sebastian wilkerson [...] [facility] | [address] | [place], [place] | | | UNIV PTH - INTFC | | [address] | | + + + + + [...] [facility] | [address] | [place] [address] | | | SERVICES, CORE | [address] | | | + + + + + in this encounter Visit Diagnoses + + | Diagnosis | + + | Aplastic anemia, idiopathic, acquired (HCC) | + + | Other specified aplastic anemias | + +"
--- OUTSIDE RECORDS SUMMARY | ~2018-07-13 | XMS | Encounter Summary ---
Demographics + + + | Address | [address] | | | [place] [address] | + + + | Home Phone | | + + + | Preferred Language | Unknown | + + + | Marital Status | | + + + | Latter-Day Affiliation | Unknown | + + + | Race | White | + + + | Ethnic Group | Not or | + + + Author + + + | Author | [facility] | + + + | Organization | [facility] | + + + | Address [...] Team Providers + +------+ + | Care Pipe Fitter Supervisor Maintenance Name | Role | Phone | + [...] | | | | Malignancies at | [facility], | Weight loss (down 20 | | | | [place] | [place] [address] | lbs since january); | | | | [address] | [phone] | Lab findings, | | | | [facility] | | teaching, guidance, | | | | Mailcode: [id number] | | and counseling | | | | [place] Guerra | | (asking for Iron | | | | [place], [place] | | overload testing and | | | | [address] | | MRI of the liver?); | | | | [phone] | | Referral | | | | [...] | | | | | Michelle Silva [place], | | | | | | [place] [address] | | | | | | [phone] | | | | | | | | +--------+ + + + + as of this encounter Visit Diagnoses Not on filein this encounter
--- OUTSIDE RECORDS SUMMARY | ~2018-07-13 | XMS | Clinical Summary ---
Demographics + + + | Address | [address] | | | [place] [address] | + + + | Home Phone | | + + + | Preferred Language | Unknown | + + + | Marital Status | | + + + | Buddhism Affiliation | Unknown | + + + | Race | Unknown | + + + | Ethnic Group | Unknown | + + + Author + + + | Author | [facility] | | | and [place] | + + + | Organization | [facility] | | | and [...] Team Providers + +------+ + | Care Gas Fitter Name | Role | Phone | + [...] Only | | [facility] | Darron ([facility]) | | 2017 | | | [...] + + | MEDICARE | MEDICA | [id number] | Medica | +1- | | | | RE | | re | [phone] | | | | PART A | | | | | | | AND B | | | | | + +--------+ +--------+ + + | MODA | MODA | [id number] | Indemn | [phone] | [address] [address] | | | HEALTH | | ity | [address] | [place] [address] | | | MDCR | | | [...] | Self | [birth year] | Home: | [address]. | | | al/Fam | | 1945 | [phone] | [place] [address] | | | srinivas | | | [phone] | | + +--------+ +--------+ + +
--- OUTSIDE RECORDS SUMMARY | ~2018-07-13 | XMS | Clinical Summary ---
Demographics + + + | Address | [address] | | | [place] [address] | + + + | Home Phone | | + + + | Preferred Language | Unknown | + + + | Marital Status | | + + + | Voodoo Affiliation | Unknown | + + + [...] Team Providers + +------+ + | Care Maintenance Person Name | Role | Phone | + +------+ + | Reginaldo Briggs MD | PP | | + +------+ + Source Comments [facility] is fully live on both EpicCare Ambulatory and EpicCare InPatient[facility] Allergies + + + + [...] | | | | | Nun[address] Silva [place], | | | | | | [place] [address] | | | | | | [phone] | | | | | | | [...] the | | | | PDT | ([facility]) | results section. | + +--------+ + + + | CBC+DIFF,POC | Routin | 05/17/2018 | Aplastic anemia, | Results for this | | | e | 2:12 PM | idiopathic, acquired | procedure are in the | | | | PDT | ([facility]) | results section. | + +--------+ + + + | ERYTHROPOIETIN, | Routin | 05/17/2018 | Aplastic anemia, | Results for this | | SERUM | e | 1:49 PM | idiopathic, acquired | procedure are in the | | | | PDT | ([facility]) | results section. | + +--------+ + + + | LDH TOTAL, PLASMA | Routin | 05/17/2018 | Aplastic anemia, | Results for this | | | e | 1:49 PM | idiopathic, acquired | procedure are in the | | | | PDT | ([facility]) | results section. | + +--------+ [...] LABORATORY | [address] | [place] [address] | | | SERVICES, | [address] [...] | + + + + + | [facility] | [address] | [place] [address] | | | SERVICES, | [address] [...] [facility] | [address] | [place] [address] | | | SERVICES, | [address] [...] + + | PRODUCT UNIT # | [id number] | | [facility] | | | [...] + + + | EXPIRATION DATE | [id number] | | [facility] | | | [...] + + | BLOOD PRODUCT CODE | [id number] | | [facility] | | | | | SERVICES, | | | | | TRANSFUSION | | | | | MEDICINE | + + + + + + + + + + | Performing | Address | City/State/Zipcode | Phone Number | | Organization | | | | + + + + + | [facility] | [address] | [place] [address] | | | SERVICES, | [address] [...] | [address] | [place], [place] | | | KEVYN POINT OF CARE | [address] | [address] | | | TESTS | | | [...] | [address] | [place], [place] | | | KEVYN POINT OF CARE | [facility] | [address] | | | TESTS | | | [...] recombinant | | | | | EPO ([facility] | | | | | [phone],1989).Perf | | | | | ormed by [facility] | | | | | Laboratories,[address] | | | | | [place], [place] [address] | | | | | [phone].aruplab. | | | | | [facility], Sebastian Johnson MD, | | | | [...] [facility] | [address] | [place], [place] | | | UNIV PTH - INTFC | | [address] | | + + + + + LDH TOTAL, PLASMA (05/17/2018 1:49 PM) + +---------+ + + | Component | Value | Ref Range | Performed At | + +---------+ + + | LD TOTAL, PLASMA | 191 | <=250 U/L | [facility] | | | | | SERVICES, [...] | + + + + + | [facility] | [address] | [place] [address] | | | SERVICES, CORE | [address] [...] | MEDICA | xxxxxxxxxx | Medica | [phone] | [address] | | | RE A & | | re | [phone] | [place] [address] | | | B | | | | | + +--------+ +--------+ + + | MODA MEDICARE | MODA | xxxxxxxxx | POS | [phone] | [address] [address] | | SUPPLEMENT | MEDICA | | | [phone] | [place] [address] | | | RE | | | [...] | Self | [birth year] | Home: | [address] | | | al/Fam | | 1945 | [phone] | [place] [address] | | | srinivas | | | [phone] | | + +--------+ +--------+ + +
--- OUTSIDE RECORDS SUMMARY | ~2018-07-13 | XMS | Encounter Summary ---
Demographics + + + | Address | [address] | | | [place] [address] | + + + | Home Phone | | + + + | Preferred Language | Unknown | + + + | Marital Status | | + + + | Sabianism Affiliation | Unknown | + + + | Race | Unknown | + + + | Ethnic Group | Unknown | + + + Author + + + | Author | [facility] | | | and [place] | + + + | Organization | [facility] | | | and [...] Team Providers + +------+ + | Care Child Care Associate Teacher Name | Role | Phone | + [...] [place] | | | | | [address] | [place] [address] | | | | | [place] [address] | [phone] | | | | | [phone] | | | +--------+ + + + [...]
--- OUTSIDE RECORDS SUMMARY | ~2018-07-13 | XMS | Encounter Summary ---
Demographics + + + | Address | [address] | | | [place] [address] | + + + | Home Phone | | + + + | Preferred Language | Unknown | + + + | Marital Status | | + + + | Taoist Affiliation | Unknown | + + + | Race | Unknown | + + + | Ethnic Group | Unknown | + + + Author + + + | Author | [facility] | | | and [place] | + + + | Organization | [facility] | | | and [...] Team Providers + +------+ + | Care Teletypesetter Operator Name | Role | Phone | [...] [place] | | | | | [address] | [place] [address] | | | | | [place] [address] | [phone] | | | | | [phone] | | | +--------+ + + + [...]
--- OUTSIDE RECORDS SUMMARY | ~2018-07-13 | XMS | Encounter Summary ---
Demographics + + + | Address | [address] | | | [place] [address] | + + + | Home Phone | | + + + | Preferred Language | Unknown | + + + | Marital Status | | + + + | Oriental Orthodox Affiliation | Unknown | + + + [...] Team Providers + +------+ + | Care Railroad Dining Car Steward/Stewardess Name | Role | Phone | + [...] | | | | Malignancies at | [facility], | Weight loss (down 20 | | | | [place] | [place] [address] | lbs since january); | | | | [address] | [phone] | Lab findings, | | | | [facility] | | teaching, guidance, | | | | Mailcode: [id number] | | and counseling | | | | Forrest Guerra | | (asking for Iron | | | | [place], [place] | | overload testing and | | | | [address] | | MRI of the liver?); | | | | [phone] | | Referral | | | | [...] | | | | | Michelle Silva [place], | | | | | | [place] [address] | | | | | | [phone] | | | | | | | | +--------+ + + + + as of this encounter Visit Diagnoses Not on filein this encounter
--- OUTSIDE RECORDS SUMMARY | ~2018-07-13 | XMS | Encounter Summary ---
Demographics + + + | Address | [address] | | | [place] [address] | + + + | Home Phone | | + + + | Preferred Language | Unknown | + + + | Marital Status | | + + + | Shinto Affiliation | Unknown | + + + | Race | White | + + + | Ethnic Group | Not or | + + + Author + + + | Author | [facility] | + + + | Organization | [facility] | + + + | [...] Team Providers + +------+ + | Care New Car Make Ready Worker Name | Role | Phone | + [...] + + | 05/17/ | Hospital | [facility] | | | | 2018 | Encounter | Hematologic | | | | | | [facility]ign[facility] at [facility] | | | | | | [address] | | | | | | [facility] | | | | | | Mailcode: [id number] | | | | | | [address] | | | | | | [place], [place] | | | | | | [address] | | | | | | [phone] | | | +--------+ + + + [...] pt and reminded to check out at lead front end developer upon discharge. Ed ucated pt to contact clinic if experiencing temp greater than 100.4, chills, s/s of infectio n or bleeding, inability to swallow or keep down liquids or pills. Pt verbalized understand ing. Patient ambulated independently out of clinic with daughter, who is also local company hazmat driver. in this encounter Plan of Treatment [...] | | | | | Michelle Silva [place], | | | | | | [place] [address] | | | | | | [phone] | | | | | | | [...] | + + + + + | [facility] | [address] | [place] [address] | | | SERVICES, | [address] [...] | + + + + + | [facility] | [address] | [place] [address] | | | SERVICES, | [address] | | | | TRANSFUSION MEDICINE | | | | + + + + + ABO & RH TYPE (05/17/2018 3:49 PM) + + + + + | Component | Value | Ref Range | Performed At | + + + + + | [facility] | B | | [facility] | | | | | SERVICES, [...] [facility] | [address] | [place] [address] | | | SERVICES, | [address] [...] + + | PRODUCT UNIT # | [id number] | | [facility] | | | [...] + + + | EXPIRATION DATE | [id number] | | [facility] | | | [...] + + | BLOOD PRODUCT CODE | [id number] | | [facility] | | | | | SERVICES, | | | | | TRANSFUSION | | | | | MEDICINE | + + + + + + + + + + | Performing | Address | City/State/Zipcode | Phone Number | | Organization | | | | + + + + + | [facility] | [address] | [place] [address] | | | SERVICES, | [address] | | | | TRANSFUSION MEDICINE | | | | + + + + + in this encounter Visit Diagnoses + + | Diagnosis | + + | Aplastic anemia (HCC) - Primary | + + | Aplastic anemia, unspecified | + +"
[~2018-07-13 18:40] MED LIST changes: +AUGMENTIN 875-1 EACH PO
--- OUTSIDE RECORDS SUMMARY | 2018-07-13 18:46 | XMS ---
PreManage Notification: MARLYN ESTRADA Security Optometry Doctor Events No recent Security Events currently on file CRITERIA MET - Group Notification - 6 ED Visits in 6 Months - [facility] - Has Care Guidelines - [facility] - 2 Visits in 30 Days CARE PROVIDERS ELEUTERIO BREAUX Internal Medicine: Medical Oncology 04/26/2018-Angela Miller PHONE: [phone] KATRIN VERA Internal Medicine 07/10/2018-Angela WALLS PHONE: [phone] DEBI HILL Hospitalist 04/26/2018-Current PHONE: [phone] Reginaldo Briggs MD Primary Care Current PHONE: Unknown or_praxis Case or Track Broom Operator Current PHONE: Unknown Guidelines Source: [facility] Guidelines Date: 06/14/2018 Care Coordination: PATIENT IS UNDER SERVICES AT [facility].\T\nbsp; IF PATIENT IS SEEN IN THE ED, PLEASE NOTIFY THEM AT [phone].\T\nbsp; IF AFTER HOURS OR ON WEEKENDS PLEASE CALL SWITCHBOARD AT [phone] AND HAVE ON-CALL RN NOTIFIED. Care History Medical/Surgical 04/26/2018 [facility] - Patient is currently established with [facility]. If patient is seen in the ED during business hours. Please contact CHWs at [facility] at [phone]. Care Recommendation: This patient has had 5 or more Emergency Department visits in the last 12 months.\T\nbsp; Patient requires education on the scope and purpose of the ED as an acute care provider not a Primary Care Provider and should not be utilized for chronic conditions.\T\nbsp; If patient returns to ED please contact Community Health WorkerLanny at [phone]. These are guidelines and the provider should exercise clinical judgment when providing care. E.D. VISIT COUNT (12 MO.) [address] [facility] TOTAL 7 NOTE: Visits indicate total known visits. ED/UCC VISIT TRACKING (12 MO.) 07/13/2018 18:41 [facility] [place] TYPE: Emergency COMPLAINT: - FEVER 07/09/2018 20:16 [facility] [place] TYPE: Emergency COMPLAINT: - POSS ALERGIC REACTION DIAGNOSES: - Aplastic anemia, unspecified - Hyperlipidemia, unspecified - Other adjunct faculty for medical terminology (current) drug therapy - Anemia, unspecified - Allergy status to other drugs, medicaments and biological substances status - Decreased white blood cell count, unspecified 05/29/2018 18:05 [facility] [place] TYPE: Emergency COMPLAINT: - MOUTH PAIN DIAGNOSES: - Hyperlipidemia, unspecified - Allergy status to other drugs, medicaments and biological substances status - Other mcc (current) drug therapy - termite control technician (current) use of antibiotics - Blister (nonthermal) of other part of head, initial encounter - Exposure to other specified factors, initial encounter 05/10/2018 11:55 [facility] [place] TYPE: Emergency COMPLAINT: - SYNCOPE 04/25/2018 10:[address] [facility] [place] TYPE: Emergency COMPLAINT: - WEAKNESS DIAGNOSES: - Weakness - Allergy status to other drugs, medicaments and biological substances status - Other adjunct faculty for medical terminology (current) drug therapy - termite control technician (current) use of antibiotics - Aplastic anemia, unspecified - Syncope and collapse - Hyperlipidemia, unspecified 04/12/2018 11:31 [facility] [place] TYPE: Emergency COMPLAINT: - DIZZINESS,WEAKNESS DIAGNOSES: - Dizziness and giddiness - Aplastic anemia, unspecified - Thrombocytopenia, unspecified - Hyperlipidemia, unspecified - Allergy status to other drugs, medicaments and biological substances status - Other mcc (current) drug therapy 03/11/2018 10:08 [facility] [place] TYPE: Emergency COMPLAINT: - WEAKNESS DIAGNOSES: - Contusion of left front wall of thorax, initial encounter - Allergy status to other drugs, medicaments and biological substances status - Other mcc (current) drug therapy - Unspecified fall, initial encounter - FPC (current) use of antibiotics - Aplastic anemia, unspecified - Hyperlipidemia, unspecified - Contusion of left upper arm, initial encounter INPATIENT VISIT TRACKING (12 MO.) No inpatient visits to display in this time frame [email or web address]
== END 2018-07-13 21:44 | disposition short-term general hospital (02) ==
LOC: ED 18:40
DX: D70.9 Neutropenia, unspecified (principal); R50.81 Fever presenting with conditions classified elsewhere; Z79.899 Other long term (current) drug therapy
CPT/HCPCS: 80053; 81001; 83605; 85025; 99283